=== PATIENT | female | born 1970 | race Caucasian/White ===

== ENCOUNTER 2023-05-27 09:24 | Emergency (ER) | payer MEDICAID, SELFPAY ==
[2023-05-27 09:31] VITALS: BP 142/80; PULSE 104; RESP 17; TEMP 36.3; O2SAT 99; BMI 24.9
[2023-05-27 09:46] VITALS: BP 128/91; RESP 17; O2SAT 100
--- NOTE | 2023-05-27 09:48 | W.ED.GENADLT ---
HPI - General Adult General: Chief complaint: Headache Stated complaint: elevated bp Time Seen by Provider: 05/27/23 09:34 Source: patient Mode of arrival: ambulatory Limitations: no limitations History of Present Illness: This patient was referred to the emergency department because she stopped at the stress center and apparently they took her blood pressure and it was in the 170/120 range at that time and they suggested she might want to come to the emergency department to be checked out. Patient is totally asymptomatic she denies any chest pain shortness of breath headache specifically or other constitutional complaints. She states that she had just walked over to the stress center this morning. She had had some coffee and also smoked cigarettes before she came into the stress center. She states there was a lot of drama going on and she felt a little anxious and stressed while she was there before they took her blood pressure. She takes 2 medications 1 of which is lisinopril the other is amphetamine. She states she is taking those regularly. She denies any other street drugs, alcohol, [id number] medications etc. She denies any thoughts of harming herself or others etc. Associated symptoms: Deny chest pain, dyspnea, headache(s), nausea, rash, palpitations, syncope or vomiting Review of Systems Const: Denies: fever(s) or chills Eyes: Denies: change in vision ENMT: Denies: odynophagia or nasal discharge Card: Denies: chest pain, palpitations, irregular heart rhythm, lightheadedness or syncope Resp: Denies: dyspnea, productive cough or non-productive cough GI: Denies: abdominal pain, nausea, vomiting or diarrhea : Denies: flank pain, difficulty voiding, dysuria or urinary frequency Musc: Denies: neck pain, back pain, extremity pain or extremity swelling Skin/Breast: Denies: rash Neuro: Denies: headache(s), numbness in extremities or weakness in extremities Psych: Reports: anxiety; Denies: visual hallucinations, auditory hallucinations, suicidal ideation or homicidal ideation Physical Exam Narrative: EXAM NARRATIVE: Patient is alert makes good eye contact speech is somewhat pressured but generally goal-directed and fluent. He is cooperative. Const: COMMON NORMALS: no acute distress, average body habitus, patient oriented x3, healthy appearing and alert GENERAL APPEARANCE: cooperative and comfortable HENMT: COMMON NORMALS: normocephalic, Normal nasal mucous membranes and turbinates present and moist oral mucous membranes HEAD & SCALP: normocephalic NOSE: Normal nasal mucous membranes and turbinates present Eye: COMMON NORMALS: Equal, round and reactive pupils present, EOMs intact bilaterally and conjunctivae normal CONJUNCTIVA: Yes conjunctivae normal PUPIL: Yes Equal, round and reactive pupils present Neck/C-Spine: COMMON NORMALS: full ROM, no lymphadenopathy and supple Chest: COMMONS NORMALS: normal inspection of the chest Resp: COMMON NORMALS: normal respiratory effort, No retractions, No use of accessory muscles and clear to auscultation bilaterally AUSCULTATION: clear to auscultation bilaterally Cardio: COMMON NORMALS: regular rate, regular rhythm, No murmurs present (Cardio) and Peripheral pulses 2+ throughout RATE: regular rate RHYTHM: regular rhythm PERIPHERAL PULSES: Peripheral pulses 2+ throughout GI: COMMON NORMALS: Normal to inspection, nondistended, normoactive bowel sounds present and Soft to palpation PALPATION: Yes Soft to palpation : COMMON NORMALS: Yes no CVA tenderness BLADDER/KIDNEY EXAM: Yes no CVA tenderness Back/Pelvis: COMMON NORMALS: no CVA tenderness, thoracic and lumbar spine normal to inspection, no thoracic nor lumbar tenderness, thoraco-lumbar ROM normal and straight leg raise negative bilaterally Extremity: COMMON NORMALS: normal to inspection, full ROM, capillary refill normal, no calf tenderness and no pedal edema Neuro: COMMON NORMALS: patient oriented x3, moves all extremities, no focal motor deficits and no sensory deficits noted SENSORIUM/ORIENTATION: Yes alert CRANIAL NERVES: Yes CN normal except as noted Psych: COMMON NORMALS: mental status grossly normal, Normal thought process present, cooperative, normal affect, speech normal, denies hallucinations, denies homicidal ideation and denies suicidal ideation ACTIVITY/MOTOR BEHAVIOR: Yes appropriate eye contact SPEECH: Yes normal speech MOOD & AFFECT: Yes elevated mood THOUGHT PROCESS: Normal thought process present THOUGHT CONTENT: Yes Normal thought content present ATTENTION/CONCENTRATION: Yes attention grossly intact and Yes concentration grossly intact MEMORY/COGNITION: Yes memory grossly intact INSIGHT: Fair insight present (Psych) JUDGEMENT: Fair judgement present (Psych) Skin: COMMON NORMALS: no rashes or lesions noted and no wounds GENERAL SKIN EXAM: no rashes or lesions noted Course ED course: Patient's blood pressure is certainly in normal range on repeated evaluations in the emergency department. She is totally asymptomatic and has no other current findings on her clinical examination. Vital Signs: Vital signs: Vital Signs Temperature 97.4 F L 05/27/23 09:31 Pulse Rate 104 H 05/27/23 09:31 Respiratory Rate 17 05/27/23 09:46 Blood Pressure 128/91 05/27/23 09:46 Pulse Oximetry 100 05/27/23 09:46 Oxygen Delivery Me thod Room Air 05/27/23 09:46 MDM - General Adult Medical Decision Making Patient with historically elevated blood pressure noted this morning at the crisis center and was sent to this emergency department for further evaluation. She has a history of hypertension and takes lisinopril and apparently also takes amphetamine as part of her prescribed medications. She arrived at the emergency department totally asymptomatic with a reassuring clinical examination blood pressures while in the emergency department revealed initial blood pressure of 128/91 and a subsequent blood pressure was 142/80. Again she remained totally asymptomatic with a reassuring clinical examination. No further intervention warranted at this time no evidence of an ongoing emergency medical condition but we discussed return precautions and she was comfortable with the plan. No radiology studies performed this visit Discharge Plan Discharge Patient Disposition: Home Clinical Impression: Elevated blood pressure reading Condition: Stable Prescriptions: No Action No Known Home Medications Discharge Orders: Discharge ED (Routine); Ordered 05/27/23 Ordered By: Basim Melendrez Discharge Diet: Usual diet Discharge Activity: Resume usual activity Patient Instructions: Opioid Safety, Pain Management Activity Restrictions/Additional Instructions: Continue all your usual prescribed medications. Try to reduce your tobacco and caffeine use. If you develop any symptoms such as headache, shortness of breath or other concerning symptoms or your blood pressures remain elevated with the symptoms return for further evaluation otherwise follow-up with your primary care doctor regarding medications adjustments Coding Level of Care Code ED Brush Clearing Laborer for Pavel Cormier
== END 2023-05-27 10:17 | disposition home or self-care (01) ==
PROVIDERS: Emergency Provider Emergency Medicine
DX: R03.0 Elevated blood-pressure reading, without diagnosis of hypertension (principal); I10 Essential (primary) hypertension; Z72.0 Tobacco use
CPT/HCPCS: 99281

== ENCOUNTER 2023-06-21 23:04 | Emergency (ER) | payer MEDICAID, SELFPAY ==
[2023-06-21 23:08] VITALS: BP 133/91; PULSE 98; RESP 14; TEMP 36.3; O2SAT 98
[2023-06-22 00:31] LABS: Amphetamines Screen Urine Positive (Negative); Barbiturates Screen Urine Negative (Negative); Benzodiazepines Screen Urine Negative (Negative); Cocaine Screen Urine Negative (Negative); Opiate Screen Urine Negative (Negative); PCP Screen Urine Negative (Negative); THC Screen Urine Negative (Negative)
--- NOTE | 2023-06-22 00:55 | W.ED.GENADLT ---
HPI - General Adult General: Chief complaint: General Medical Stated complaint: Left Knee Pain\Wants a Drug test Time Seen by Provider: 06/21/23 23:32 Source: patient Mode of arrival: ambulatory Limitations: no limitations History of Present Illness: 53yo female presents with request of a urine drug screen. Patient states she is currently homeless and was staying at a facility, but was asked to leave when she tested positive for marijuana and amphetamines in her urine. Patient states that she does have a prescription for amphetamine salts, but does not use marijuana. She is requesting a drug test to ensure that there he has no marijuana in her system. She denies any other complaints at this time. Associated symptoms: Deny chest pain, dyspnea or vomiting Review of Systems Const: Denies: fever(s) or chills ENMT: Denies: throat pain Card: Denies: chest pain Resp: Denies: dyspnea GI: Denies: vomiting or diarrhea Physical Exam Const: COMMON NORMALS: no acute distress and alert GENERAL APPEARANCE: cooperative ORIENTATION/CONSCIOUSNESS: Yes awake OTHER: Patient is ambulatory to the exam room unassisted. She is sitting upright on the side of the stretcher no acute distress. She is able to give history with no difficulty. No family is at bedside HENMT: COMMON NORMALS: normocephalic and Normal external nose present HEAD & SCALP: normocephalic NOSE: Normal external nose present Neck/C-Spine: COMMON NORMALS: full ROM Chest: CHEST: Yes Symmetrical chest wall rise Resp: COMMON NORMALS: normal respiratory effort Extremity: NARRATIVE EXTREMITY EXAM: MAEW Neuro: SENSORIUM/ORIENTATION: Yes alert Psych: COMMON NORMALS: cooperative ATTITUDE: Yes calm Course Vital Signs: Vital signs: Vital Signs Temperature 97.4 F L 06/21/23 23:08 Pulse Rate 98 06/21/23 23:08 Respiratory Rate 14 06/21/23 23:08 Blood Pressure 133/91 06/21/23 23:08 Pulse Oximetry 98 06/21/23 23:08 Oxygen Delivery Me thod Room Air 06/21/23 23:08 MDM - General Adult Medical Decision Making 53yo female here with request of a urine drug screen. Patient is currently homeless and was staying at a facility, but tested positive for cannabinoids and amphetamines on their drug screen. Patient does report that she has a prescription for amphetamine salts and does have the prescription bottle with her, but states that she does not use marijuana. She is requesting a drug screen to ensure that she does not have cannabinoids in her system. She denies any other concerns at this time. Patient is nontoxic in appearance. Vital signs are stable. UDS with presumptive positive for amphetamines. Discussed these findings with patient. Patient was provided with a copy of her labs at her request. Recommend she follow-up with her doctor for recheck. Advised return to the emergency department as needed. Patient states understanding and has no further questions at this time. Lab Data I reviewed the patient's lab results. Laboratory Results Urine Opiates Screen Negative ng/mL (Negative) 06/22/23 00:13 Ur Barbiturates Screen Negative ng/mL (Negative) 06/22/23 00:13 Ur Phencyclidine Scrn Negative ng/mL (Negative) 06/22/23 00:13 Ur Amphetamines Screen Positive ng/mL (Negative) H 06/22/23 00:13 U Benzodiazepines Scrn Negative ng/mL (Negative) 06/22/23 00:13 Urine Cocaine Screen Negative ng/mL (Negative) 06/22/23 00:13 U Marijuana (THC) Screen Negative ng/mL (Negative) 06/22/23 00:13 No radiology studies performed this visit Discharge Plan Discharge Patient Disposition: Home Clinical Impression: Encounter for drug screening Condition: Stable Prescriptions: No Action No Known Home Medications Discharge Orders: Discharge ED (Routine); Ordered 06/22/23 Ordered By: Pj Bailey Discharge Diet: Usual diet Discharge Activity: Resume usual activity Activity Restrictions/Additional Instructions: You are provided with a copy of your urine drug screen results Please follow-up with your doctor as needed for recheck Return to the emergency department as needed Coding Level of Care Code ED Visual Training Aide for Pavel Cormier
== END 2023-06-22 00:51 | disposition home or self-care (01) ==
PROVIDERS: Emergency Provider Nurse Practitioner
DX: Z00.00 Encounter for general adult medical examination without abnormal findings (principal); Z59.01 Sheltered homelessness
CPT/HCPCS: 80306; 99283

== ENCOUNTER 2023-06-22 22:15 | Emergency (ER) | payer MEDICAID, SELFPAY ==
[2023-06-22 22:36] VITALS: BP 133/84; PULSE 88; RESP 14; TEMP 36.6; O2SAT 98
[2023-06-23 01:41] VITALS: BP 115/65; PULSE 69; RESP 14; O2SAT 98
--- NOTE | 2023-06-23 02:21 | W.ED.EXTPRO ---
HPI - Extremity Problem General: Chief complaint: Extremity Problem,Nontraumatic Stated complaint: hands are red/burning, believes bp is high Time Seen by Provider: 06/23/23 00:37 History of Present Illness: 53-year-old female presents to the emergency department stating that she feels like her blood pressure is high. She was seen yesterday requesting a urine drug screen as she is homeless and the retirement where she was staying at told her that she was not able to stay there because she tested positive for amphetamines and marijuana. She states she has not smoked marijuana. Since her time of discharge yesterday patient has been sleeping in the waiting room. She now presents with concerns that her blood pressure might be high and that her hands are dry and red. She denies numbness or tingling, fevers chills or night sweats. Review of Systems General: Reports: 10 or more systems reviewed and unremarkable except in HPI and below Skin/Breast: Reports: erythema Physical Exam Const: COMMON NORMALS: no acute distress, patient oriented x3 and alert HENMT: COMMON NORMALS: normocephalic, atraumatic and EAC's normal HEAD & SCALP: normocephalic and atraumatic EXTERNAL AUDITORY CANAL: EAC's normal Eye: COMMON NORMALS: Equal, round and reactive pupils present and EOMs intact bilaterally PUPIL: Yes Equal, round and reactive pupils present Neck/C-Spine: COMMON NORMALS: full ROM, supple, no meningeal signs and no JVD Resp: COMMON NORMALS: normal respiratory effort, No use of accessory muscles and clear to auscultation bilaterally AUSCULTATION: clear to auscultation bilaterally Cardio: COMMON NORMALS: no JVD, regular rate, regular rhythm, S1 normal heart sound present and S2 normal heart sound present RATE: regular rate RHYTHM: regular rhythm HEART SOUNDS: S1 normal heart sound present and S2 normal heart sound present Extremity: COMMON NORMALS: normal to inspection, full ROM and capillary refill normal Neuro: COMMON NORMALS: patient oriented x3 SENSORIUM/ORIENTATION: Yes alert MENINGEAL SIGNS: Yes no meningeal signs Psych: COMMON NORMALS: mental status grossly normal, Normal thought process present, cooperative and speech normal SPEECH: Yes normal speech THOUGHT PROCESS: Normal thought process present Skin: GENERAL SKIN EXAM: dry skin Course Vital Signs: Vital signs: Vital Signs Temperature 97.8 F 06/22/23 22:36 Pulse Rate 69 06/23/23 01:41 Respiratory Rate 14 06/23/23 01:41 Blood Pressure 115/65 06/23/23 01:41 Pulse Oximetry 98 06/23/23 01:41 Oxygen Delivery Me thod Room Air 06/23/23 01:41 MDM - Extremity (Nontraumatic) Medical Decision Making Physical exam completed and documented, have an extensive discussion with the patient regarding supportive care for her dry hands as well as reassured her that her blood pressure was not elevated. I will discharge and recommend follow-up as needed. Medical Records I reviewed the patient's medical records. No radiology studies performed this visit Discharge Plan Discharge Patient Disposition: Home Clinical Impression: Medical condition not demonstrated, Homelessness Condition: Stable Prescriptions: No Action No Known Home Medications Discharge Orders: Discharge ED (Routine); Ordered 06/23/23 Ordered By: Nickolas Beebe Discharge Diet: Usual diet Discharge Activity: Resume usual activity Patient Instructions: Opioid Safety, Pain Management Coding Level of Care Code ED Tourist Information Officer for Pavel Cormier
[2023-06-23 02:31] VITALS: BP 108/63; O2SAT 99
== END 2023-06-23 02:32 | disposition home or self-care (01) ==
PROVIDERS: Emergency Provider Internal Medicine
DX: Z03.89 Encounter for observation for other suspected diseases and conditions ruled out (principal); Z59.00 Homelessness unspecified
CPT/HCPCS: 99281

== ENCOUNTER 2023-07-17 09:10 | Inpatient (IN) | payer MEDICAID, SELFPAY ==
[2023-07-17 09:10] VITALS: BP 135/83; PULSE 95; RESP 16; TEMP 37.1; O2SAT 98; BMI 24.5
[2023-07-17 10:40] LABS: Basophils % 0.5 %; Eosinophils # 0.1 10^3/uL (0.0-0.8); Eosinophils % 1.3 %; Hematocrit 44.4 % (36-47); Lymphocytes % 23.3 %; Mean Corpuscular HGB Conc 33.8 g/dL (30-55); Mean Corpuscular Hemoglobin 30.1 pg (27-33); Mean Platelet Volume 10.8 fL (7.4-10.4); Monocytes # 0.6 10^3/uL (0.2-0.9); Monocytes % 7.4 %; Neutrophils # 5.72 10^3/uL (1.8-7.7); Neutrophils % 67.4 %; Nucleated Red Blood Cells % 0 %; Platelet Count 248 10^3/cmm (157-399); Red Blood Count 4.99 10^6/uL (3.85-5.65); Red Cell Distribution Width 13.9 % (12.1-15.1); White Blood Count 8.49 10^3/uL (3.29-11.43)
[2023-07-17 10:43] LABS: HCG Qualitative Urine. Negative (Negative)
--- NOTE | 2023-07-17 10:50 | ED.C_ITS ---
HPI - Psych 2 General: Chief Complaint: Psychiatric Symptoms Stated Complaint: PSYCH EVAL Time Seen by Provider: 07/17/23 10:08 History of Present Illness: 53-year-old female presents to the emerg ency department stating that she has been staying at a homeless skilled nursing and states that she has had significant anxiety and worsening stress over the previous several months and today it became too much for her. She states that yesterday she started having thoughts that she could not get out of her head. She states that she has difficulty having a conversation and feels like her mind is racing. She states that she feels hopeless and just wants to give up on life although she states she does not have any type of suicidal ideation or homicidal ideation. She states she feels very depressed and states that she just does not want to eat or drink anything for the previous 3 to 4 days. She states she was previously seen at [facility] for inpatient psychiatry in 2017. She states at that time she was seen because she was taking her son's Adderall medication. 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 She does endorse intermittent usage of cigarette tobacco products as well as intermittent alcohol use and states that she has not consumed any alcohol within the past 1 month. She states she does feel like people are following her and are after her but she does not provide a reason as to why that would be. She denies auditory or visual hallucinations. Associated symptoms: Reports depression; Deny auditory hallucinations, visual hallucinations, homicidal ideation or suicidal ideation Review of Systems 2 General: Reports: 10 or more systems reviewed and unremarkable except in HPI and below Psych: Reports: anxiety, depression, hopelessness and difficulty concentrating; Denies: visual hallucinations, auditory hallucinations, tactile hallucinations, suicidal ideation or homicidal ideation Physical Exam 2 Const: COMMON NORMALS: no acute distress, patient oriented x3 and alert HENMT: COMMON NORMALS: normocephalic, atraumatic, TM's normal bilaterally, Normal external nose present, Normal nasal mucous membranes and turbinates present and moist oral mucous membranes HEAD & SCALP: normocephalic and atraumatic NOSE: Normal external nose present and Normal nasal mucous membranes and turbinates present TYMPANIC MEMBRANE: TM's normal bilaterally Eye: COMMON NORMALS: Equal, round and reactive pupils present and EOMs intact bilaterally PUPIL: Yes Equal, round and reactive pupils present Neck/C-Spine: COMMON NORMALS: full ROM, supple, no meningeal signs and Thyroid normal THYROID: Thyroid normal Resp: COMMON NORMALS: normal respiratory effort, No use of accessory muscles and clear to auscultation bilaterally AUSCULTATION: clear to auscultation bilaterally Cardio: COMMON NORMALS: regular rate, regular rhythm, S1 normal heart sound present, S2 normal heart sound present and Peripheral pulses 2+ throughout R ATE: regular rate RHYTHM: regular rhythm HEART SOUNDS: S1 normal heart sound present and S2 normal heart sound present PERIPHERAL PULSES: Peripheral pulses 2+ throughout GI: COMMON NORMALS: Normal to inspection, nondistended, normoactive bowel sounds present, Soft to palpation and non-tender PALPATION: Yes Soft to palpation : COMMON NORMALS: Yes no CVA tenderness BLADDER/KIDNEY EXAM: Yes no CVA tenderness Back/Pelvis: COMMON NORMALS: no CVA tenderness and thoracic and lumbar spine normal to inspection Extremity: COMMON NORMALS: normal to inspection, full ROM and capillary refill normal Neuro: COMMON NORMALS: patient oriented x3, moves all extremities and no sensory deficits noted SENSORIUM/ORIENTATION: Yes alert MENINGEAL SIGNS: Y es no meningeal signs Psych: APPEARANCE: Yes grossly normal ATTITUDE: Yes calm, No paranoid and No uncooperative ACTIVITY/MOTOR BEHAVIOR: Yes appropriate eye contact, No psychomotor agitation, No psychomotor slowing, No fidgeting, No hyperactivity and Yes disorganized behavior SPEECH: Yes rapid and Yes Pressured speech present MOOD & AFFECT: Yes euthymic mood THOUGHT PROCESS: disorganized and Tangential thought process present THOUGHT CONTENT: No Suicidality present and No Homicidality present ATTENTION/CONCENTRATION: Yes attention grossly intact and Yes concentration grossly intact MEMORY/COGNITION: Yes memory grossly intact and Yes cognition grossly intact INSIGHT: Good insight present (Psych) JUDGEMENT: Good judgement present (Psych) Course 2 Reevaluation(s): Reevaluation #1: Patient remains calm and cooperative in the ER exam room #9 I did advise her that I spoke with Dr. Taylor our psychiatrist and discussed the patient's laboratory evaluation and will admit her inpatient for psychiatric evaluation treatment and care. I will provide patient antibiotics for her urinary tract infection at the time of admission. Time: 11:37 Vital Signs: Vital signs: Vital Signs Temperature 98.7 F 07/17/23 09:10 Pulse Rate 95 07/17/23 09:10 Respiratory Rate 16 07/17/23 09:10 Blood Pressure 135/83 07/17/23 09:10 Pulse Oximetry 98 07/17/23 09:10 Oxygen Delivery Me thod Room Air 07/17/23 09:10 [facility] - Psych Medical Decision Making Physical exam completed and documented, I will obtain medical clearance psychiatric labs to include CBC, CMP, urinalysis urine drug screen and serum alcohol level. I will contact the psychiatrist to request admission to the inpatient psychiatric unit to evaluate the patient for additional treatment. Medical Records I reviewed the patient's medical records. Lab Data 07/17/23 09:31 07/17/23 09:31 Laboratory Results WBC 8.49 10^3/uL (3.29-11.43) 07/17/23 09:31 RBC 4.99 10^6/uL (3.85-5.65) 07/17/23 09:31 Hgb 15.00 g/dL (11.27-16.99) 07/17/23 09:31 Hct 44.4 % (36-47) 07/17/23 09:31 MCV 89.0 fl (85-98) 07/17/23 09:31 MCH 30.1 pg (27-33) 07/17/23 09:31 MCHC 33.8 g/dL (30-55) 07/17/23 09:31 RDW 13.9 % (12.1-15.1) 07/17/23 09:31 Plt Count 248 10^3/cmm (157-399) 07/17/23 09:31 MPV 10.8 fL (7.4-10.4) H 07/17/23 09:31 Neut % (Auto) 67.4 % 07/17/23 09:31 Lymph % (Auto) 23.3 % 07/17/23 09:31 [place] % (Auto) 7.4 % 07/17/23 09:31 Eos % (Auto) 1.3 % 07/17/23 09:31 Baso % (Auto) 0.5 % 07/17/23 09:31 Neut # (Auto) 5.72 10^3/uL (1.8-7.7) 07/17/23 09:31 Lymph # (Auto) 2.0 10^3/uL (0.8-4.8) 07/17/23 09:31 [place] # (Auto) 0.6 10^3/uL (0.2-0.9) 07/17/23 09:31 Eos # (Auto) 0.1 10^3/uL (0.0-0.8) 07/17/23 09:31 Baso # (Auto) 0.0 10^3/uL (0.0-0.1) 07/17/23 09:31 Nucleated RBC % (auto) 0 % 07/17/23 09:31 Nucleated RBCs # 0.0 /100WBC 07/17/23 09:31 Sodium 133 mmol/L (136-145) L 07/17/23 09:31 Potassium 4.0 mmol/L (3.5-5.1) 07/17/23 09: Chloride 100 mmol/L (98-107) 07/17/23 09: Carbon Dioxide 23 mmol/L (22-29) 07/17/23 09: Anion Gap 14.0 (5-19) 07/17/23 09: BUN 13 mg/dL (6-20) 07/17/23 09:31 Creatinine 0.5 mg/dL (0.5-0.9) 07/17/23 09:31 GFR Calculation 129.6 mL/min (90-130) 07/17/23 09: Glucose 100 mg/dL (65-115) 07/17/23 09: Calculated Osmolality 276 mOsm/kg (285-295) L 07/17/23: Calcium 9.4 mg/dL (8.5-10.5) 07/17/23 09:31 Total Bilirubin 0.2 mg/dL (0.15-1.2) 07/17/23 09: AST 19 U/L (0-32) 07/17/23 09:31 ALT 16 U/L (0-33) 07/17/23 09:31 Alkaline Phosphatase 81 U/L (35-105) 07/17/23 09:31 Total Protein 7.3 g/dL (6.6-8.7) 07/17/23 09:31 Albumin 4.0 g/dL (3.5-5.2) 07/17/23 09:31 Globulin 3.3 g/dL (1.3-4.6) 07/17/23 09: TSH 1.86 uIU/mL (0.27-4.20) 07/17/23 09: HCG, Qual Negative (Negative) 07/17/23 09: Urine Color Yellow (Yellow) 07/17/23 09: Urine Appearance Sl hazy (CLEAR) A 07/17/23 09: Urine pH 5 (5-7) 07/17/23: Ur Specific [place] 1.025 (1.005-1.030) 07/17/23: Urine Protein 1+ (Negative) H 07/17/23 09: Urine Glucose (UA) Norm (Normal) 07/17/23: Urine Ketones Negative (Negative) 07/17/23: Urine Blood 2+ (Negative) H 07/17/23: Urine Nitrate Negative (Negative) 07/17/23 09: Urine Bilirubin Neg (Negative) 07/17/23: Urine Urobilinogen Norm mg/dL (Negative) 07/17/23: Ur Leukocyte Esterase 2+ (Negative) H 07/17/23: Urine RBC 5-10 /hpf (0-2) H 07/17/23: Urine WBC 15-25 /hpf (0-5) H 07/17/23: Ur Squamous Epith Cells 0-4 /hpf (0-5) H 07/17/23 09: Amorphous Sediment Not Reportable 07/17/23: Urine Bacteria 1+ /hpf (NONE) H 07/17/23: Urine Mucus 1+ /hpf 07/17/23: Salicylates < 0.3 mg/dL (3-10) L 07/17/23: Urine Opiates Screen Negative ng/mL (Negative) 07/17/23: Acetaminophen < 5.0 ug/mL (10-30) L 07/17/23: Ur Barbiturates Screen Negative ng/mL (Negative) 07/17/23: Ur Phencyclidine Scrn Negative ng/mL (Negative) 07/17/23: Ur Amphetamines Screen Negative ng/mL (Negative) 07/17/23: U Benzodiazepines Scrn Negative ng/mL (Negative) 07/17/23 09:31 Urine Cocaine Screen Negative ng/mL (Negative) 07/17/23 09:31 U Marijuana (THC) Screen Negative ng/mL (Negative) 07/17/23 09:31 Ethyl Alcohol < 10 mg/dL (0-10) 07/17/23 09:31 No radiology studies performed this visit Discharge Plan Discharge Patient Disposition: Admitted As Inpatient Clinical Impression: Depression Qualifiers: Depression Type: major depressive disorder Major depression recurrence: r ecurrent Active/Remission status: currently active Major depression episode severity: severe Psychotic features: without psychotic features Qualified Code(s): F33.2 - Major depressive disorder, recurrent severe without psychotic features UTI (urinary tract infection) Qualifiers: Urinary tract infection type: acute cystitis Hematuria presence: with hematuria Qualified Code(s): N30.01 - Acute cystitis with hematuria Condition: Stable Coding Level of Care Code ED Rag Washer for Pavel Cormier
[2023-07-17 10:56] LABS: Amphetamines Screen Urine Negative (Negative); Barbiturates Screen Urine Negative (Negative); Benzodiazepines Screen Urine Negative (Negative); Cocaine Screen Urine Negative (Negative); Opiate Screen Urine Negative (Negative); PCP Screen Urine Negative (Negative); THC Screen Urine Negative (Negative)
[2023-07-17 11:00] LABS: Alanine Aminotransferase 16 U/L (0-33); Alkaline Phosphatase 81 U/L (35-105); Aspartate Amino Transferase 19 U/L (0-32); Blood Urea Nitrogen 13 mg/dL (6-20); Calcium 9.4 mg/dL (8.5-10.5); Carbon Dioxide 23 mmol/L (22-29); Chloride 100 mmol/L (98-107); Creatinine Clr Calc Pharmacy 122.1019; Globulin 3.3 g/dL (1.3-4.6); Glomerular Filtration Rate 129.6 mL/min (90-130); Glucose 100 mg/dL (65-115); Osmolality Calculated 276 mOsm/kg (285-295); Sodium 133 mmol/L (136-145); Thyroid Stimulating Hormone 1.86 uIU/mL (0.27-4.20); Total Bilirubin 0.2 mg/dL (0.15-1.2); Total Protein 7.3 g/dL (6.6-8.7)
[2023-07-17 11:03] LABS: Acetaminophen < 5.0 ug/mL (10-30); Alcohol Level < 10 mg/dL (0-10); Salicylate < 0.3 mg/dL (3-10)
[2023-07-17 11:29] LABS: Protein Urine 1+ (Negative); Specific Gravity, Urine 1.025 (1.005-1.030); Urine Appearance SL Hazy (CLEAR); Urine Color Yellow (Yellow); pH Urine 5 (5-7)
[2023-07-17 11:30] LABS: Add Urine Culture? Yes; Add Urine Microscopic? YES; Bacteria Urine 1+ /hpf; Bilirubin Urine Neg (Negative); Blood Urine 2+ (Negative); Glucose Urine UA Norm (Normal); Ketones Urine Negative (Negative); Leukocyte Esterase Urine 2+ (Negative); Mucus Urine 1+ /hpf; Nitrate Urine Negative (Negative); Squamous Epithelial Cell Urine 0-4 /hpf (0-5); Urobilinogen Urine Norm (Negative); WBC Urine 15-25 /hpf (0-5)
[2023-07-17] MEDS: nitrofurantoin SR (BID) 100 mg Capsule PO (11:54)
[2023-07-17 12:05] VITALS: BP 118/72; PULSE 88; RESP 14; TEMP 36.5; O2SAT 98
[2023-07-17 14:00] VITALS: BP 118/72; PULSE 88; RESP 14; TEMP 36.5; O2SAT 98
[2023-07-17] MEDS: nicotine 4 mg lozenge MUCOUS MEM (16:31)
[2023-07-17] MEDS: hyDROXYzine 25 mg Capsule 50 MG PO (16:34)
--- NOTE | 2023-07-17 16:35 | PC.NURSE ---
Patient laying in bed, crying. Patient states that she is worried about what happens next after she leaves the unit. Patient states that it's not safe for me out there. This nurse reassured patient that the transplant case manager would work with her on Wednesday trying to get her a place to go. Administered 50mg vistaril to patient.
[2023-07-17] MEDS: lisinopril 5 mg Tablet 2.5 MG PO (18:18)
--- NOTE | 2023-07-17 18:37 | PC.NURSE ---
Patient's sister called, worried about patient. Patient's sister states that the patient has takes to three people that aren't there, including somebody she calls Karla. She will yell stuff like shut up eduardo . Patient's sister now states that she is seeing a pedophile who is talking about her grandkids. 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 Patient is also taking too many of her adderall at a time, per patient.
--- NOTE | 2023-07-17 18:42 | PC.NURSE ---
Patient's sister is Aida Mcknight, phone number is [phone]
[2023-07-17] MEDS: OLANZapine 5 mg ODT PO (20:14)
[2023-07-17] MEDS: nicotine 2 mg Gum BUCCAL (20:14)
[2023-07-17] MEDS: trazodone 50 mg Tablet PO (20:15)
[2023-07-17 20:51] VITALS: BP 96/60; PULSE 83; RESP 17; TEMP 36.4; O2SAT 97
--- NOTE | 2023-07-17 21:14 | PC.NURSE ---
IN ROOM RESTING. PT IS EVASIVE WITH ASSESSMENT AND DOES NOT SHARE ANY INFORMATION TO WHY SHE IS HERE TODAY. DENIES PAIN. DENIES SI/HI AND VH AT THIS TIME. PT DOES ENDORSE HEARING VOICES THAT ARE NEGATIVE IN NATURE. PT IS NOTED TO HAVE A FLAT AFFECT AND DEPRESSED MOOD, WITHDRAWS AND ISOLATES TO ROOM AND GUARDED WITH STAFF. RATES ANXIETY 2/10 AND DEPRESSION 5/10. PT REQUESTS PRN MEDICATIONS FOR INSOMNIA AND INCREASED ANXIETY. PT WAS GIVEN TRAZODONE 50 MG ORDERED FOR SLEEP. PT ALSO RECEIVED ZYDIS 5 MG FOR ANXIETY. ALL QUESTIONS ANSWERED AND SUPPORT WAS VOICED.
--- NOTE | 2023-07-18 05:54 | PC.NURSE ---
PT REQUIRED PRN MEDICATIONS THIS SHIFT FOR REPORTS OF INCREASED ANXIETY AND INSOMNIA. MEDICATIONS DEEMED EFFECTIVE AT THIS TIME. PT HAS HAD NO OTHER COMPLAINTS OF ANXIETY AND HAS SLEPT APPROXIMATELY 9-10 HOURS THIS SHIFT. PT CONTINUES TO REST WITH EYES CLOSED AND NO DISTRESS NOTED AT THIS TIME.
[2023-07-18 06:00] VITALS: BP 97/62; PULSE 75; RESP 16; TEMP 36.9; O2SAT 94
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
[2023-07-18 09:45] LABS: Basophils % 0.5 %; Eosinophils # 0.2 10^3/uL (0.0-0.8); Hematocrit 42.5 % (36-47); Lymphocytes # 2.1 10^3/uL (0.8-4.8); Lymphocytes % 36.5 %; Mean Corpuscular HGB Conc 32.2 g/dL (30-55); Mean Corpuscular Hemoglobin 29.5 pg (27-33); Mean Corpuscular Volume 91.6 fl (85-98); Mean Platelet Volume 10.2 fL (7.4-10.4); Monocytes # 0.5 10^3/uL (0.2-0.9); Neutrophils # 2.92 10^3/uL (1.8-7.7); Neutrophils % 50.8 %; Nucleated Red Blood Cells % 0 %; Platelet Count 205 10^3/cmm (157-399); Red Blood Count 4.64 10^6/uL (3.85-5.65); Red Cell Distribution Width 14.2 % (12.1-15.1); White Blood Count 5.75 10^3/uL (3.29-11.43)
[2023-07-18] MEDS: nicotine 21 mg Patch 1 PATCH TRANSDERMA (09:45)
[2023-07-18] MEDS: lisinopril 5 mg Tablet 2.5 MG PO (09:45)
[2023-07-18 10:13] LABS: Anion Gap 12.1 (5-19); Blood Urea Nitrogen 12 mg/dL (6-20); Calcium 8.9 mg/dL (8.5-10.5); Carbon Dioxide 28 mmol/L (22-29); Chloride 105 mmol/L (98-107); Creatinine Clr Calc Pharmacy 87.7808; Glomerular Filtration Rate 87.9 mL/min (90-130); Glucose 73 mg/dL (65-115); Osmolality Calculated 290 mOsm/kg (285-295); Potassium 4.1 mmol/L (3.5-5.1); Sodium 141 mmol/L (136-145)
[2023-07-18 14:00] VITALS: BP 96/70; PULSE 92; RESP 17; TEMP 36.8; O2SAT 97
[2023-07-18] MEDS: trazodone 50 mg Tablet PO (19:57)
[2023-07-18] MEDS: hyDROXYzine 25 mg Capsule 50 MG PO (19:57)
[2023-07-18 20:03] VITALS: BP 134/70; PULSE 83; RESP 16; TEMP 36.7; O2SAT 97
[2023-07-18] MEDS: nicotine 2 mg Gum BUCCAL (21:53)
[2023-07-19 06:00] VITALS: BP 113/70; PULSE 56; RESP 16; TEMP 37.1; O2SAT 98
--- NOTE | 2023-07-19 08:18 | PC.NURSE ---
UP IN DAY ROOM PT STATES SHE IS LOOKING FOR RESOURCES FOR AFTER DISCHARGE DUE TO BEING HOMELESS. PT DENIES PAIN. DENIES SI/HI AND VH AT THIS TIME. PT STATES SHE DOES HEAR VOICES BUT THEY ARE FAR AWAY IN THE DISTANCE AND NO INSIDE OF ME. RATES ANXIETY AND DEPRESSION 05/19. ALL QUESTIONS ANSWERED AND SUPPORT WAS VOICED.
[2023-07-19] MEDS: lisinopril 5 mg Tablet 2.5 MG PO (08:41)
[2023-07-19] MEDS: nicotine 21 mg Patch 1 PATCH TRANSDERMA (12:57)
[2023-07-19] MEDS: OLANZapine 5 mg ODT PO ×2 (12:58→21:08)
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
[2023-07-19 14:00] VITALS: BP 109/65; PULSE 77; RESP 16; TEMP 36.6; O2SAT 99
--- NOTE | 2023-07-19 18:50 | P.NPUPN_ITS ---
Subjective NPU 2 Subjective: Patient presented today reporting that she is going fine overall but that she needs to restart her Adderall. She then spoke almost exclusively about restarting that and that being the answer to all of her problems. Conversations about her problems with taking Adderall in the past and concerns about her overusing and getting off the Internet did not seem to phase her in her conversation about that being restarted. She even at 1 point talked about it making her feel good like sometimes people report when they smoke weed. Attempted to discuss a concern that is not necessarily a good thing but she did not do to follow. Mental Status Exam 2 MSE Comments: This is a well-nourished well-developed white female looking older than her stated age with hospital scrubs on with poor grooming and eye contact. No abnormal movements except for psychomotor retardation. Cooperative with exam and mild to moderate distress. Speech was decreased rate and volume. Mood described as stressed out, affect anxious and congruent. Thought process mostly organized. Thought content: Patient reports feeling overwhelmed and stressed but denies feeling anxious. Patient denies having thoughts of self-harm or harm to others. Patient denies experiencing visual hallucinations but reports occasionally hearing distant conversations. She denies suicidal or homicidal ideation, there were no delusions reported but some guardedness and paranoia suspected, she denied auditory visual hallucinations but reports preceding hospitalization endorsed their presence. Attention and concentration were limited and memory appeared unreliable but none were formally tested. She is alert and oriented to person and place. Insight, judgment and impulse control are impaired. Vitals/I&O/Wt Last Vital Signs Temp 97.8 F 07/19/23 14:00 Pulse 77 07/19/23 14:00 Resp 16 07/19/23 14:00 BP 109/65 07/19/23 14:00 Pulse Ox 99 07/19/23 14:00 O2 Del Method Room Air 07/19/23 06:00 Weight last 48 hrs Weight 65.816 kg Data NPU 07/18/23 09:37 07/18/23 09:37 Micro: Microbiology 07/17/23 09:31 Urine Culture - Final Urine,Clean Catch Microbiology 07/17/23 09:31 Urine,Clean Catch Urine Culture - Final A&P Assessment and plan (1) Psychosis: (2) History of ADHD: (3) Amphetamine use disorder, severe: (4) Anxiety: Plan This is a 53-year-old white female with significant psychosocial stressors of financial difficulties and homelessness with likely amphetamine use disorder severe but with limited insight or unwillingness to face the reality of said addiction with likely sequela of psychosis surrounding her use past and present. 1. Continue current medication. We will work with outpatient team to identify that where her Adderall use fits into successful treatment. For now we will hold ADHD medication but continue antihypertensive. Concerns surrounding use of stimulants significant. 2. Continue every 15 minute checks for safety. 3. Encourage individual, group and milieu therapy. 4. Encourage sober living treatment after discharge at the highest level of care to which he is willing to commit. Involuntary Hold Information 2 96 Hour Hold: 96 Hour Involuntary Admission: No Attestations NPU 2 Medical Necessity Statement*: Inpatient hospitalization is medically necessary and the clinically appropriate intervention at this time. We will monitor medications and make changes as indicated. Likely length of stay 3-5 days. Coding Level of Care Code Acute Code for [facility] Fwd Diagnoses Psychosis F29 History of ADHD Z86.59 Amphetamine use disorder, 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
[2023-07-19] MEDS: hyDROXYzine 25 mg Capsule 50 MG PO (20:21)
[2023-07-19] MEDS: trazodone 50 mg Tablet PO (20:21)
[2023-07-19 20:42] VITALS: BP 111/78; PULSE 88; RESP 18; TEMP 36.8; O2SAT 98
[2023-07-20 06:00] VITALS: BP 115/61; PULSE 68; RESP 18; TEMP 36.7; O2SAT 94
[2023-07-20] MEDS: nicotine 21 mg Patch 1 PATCH TRANSDERMA (09:16)
[2023-07-20] MEDS: lisinopril 5 mg Tablet 2.5 MG PO (09:16)
[2023-07-20] MEDS: acetaminophen 325 mg Tablet 650 MG PO ×2 (10:00→16:21)
[2023-07-20 14:00] VITALS: RESP 18
--- NOTE | 2023-07-20 14:43 | P.NPUPN_ITS ---
Subjective NPU 2 Subjective: Patient presents today reporting that things are fine. She reports needing to get on Adderall and we continue to discuss our belief that it is a significant part of her problem. She seems to brush past both conversations about the conversations about concerns for addiction and her history of addiction. She has gotten some additional clarity of her staff and is looking for possible discharge places given her homelessness and significant psychosocial challenges. Mental Status Exam 2 MSE Comments: This is a well-nourished well-developed white female looking older than her stated age with hospital scrubs on with poor grooming and eye contact. No abnormal movements except for psychomotor retardation. Cooperative with exam and mild to moderate distress. Speech was decreased rate and volume. Mood described as stressed out, affect anxious and congruent. Thought process mostly organized. Thought content: Patient reports feeling overwhelmed and stressed but denies feeling anxious. Patient denies having thoughts of self-harm or harm to others. Patient denies experiencing visual hallucinations but reports occasionally hearing distant conversations. She denies suicidal or homicidal ideation, there were no delusions reported but some guardedness and paranoia suspected, she denied auditory visual hallucinations but reports preceding hospitalization endorsed their presence. Attention and concentration were limited and memory appeared unreliable but none were formally tested. She is alert and oriented to person and place. Insight, judgment and impulse control are impaired. Vitals/I&O/Wt Last Vital Signs Temp 98.0 F 07/20/23 06:00 Pulse 68 07/20/23 06:00 Resp 18 07/20/23 06:00 BP 115/61 07/20/23 06:00 Pulse Ox 94 07/20/23 06:00 O2 Del Method Room Air 07/20/23 06:00 Data NPU 07/18/23 09:37 07/18/23 09:37 Micro: Microbiology 07/17/23 09:31 Urine Culture - Final Urine,Clean Catch Microbiology 07/17/23 09:31 Urine,Clean Catch Urine Culture - Final A&P Assessment and plan (1) Psychosis: (2) History of ADHD: (3) Amphetamine use disorder, severe: (4) Anxiety: Plan This is a 53-year-old white female with significant psychosocial stressors of financial difficulties and homelessness with likely amphetamine use disorder severe but with limited insight or unwillingness to face the reality of said addiction with likely sequela of psychosis surrounding her use past and present. 1. Continue current medication. We will work with outpatient team to identify that where her Adderall use fits into successful treatment. For now we will hold ADHD medication but continue antihypertensive. Concerns surrounding use of stimulants significant. 2. Continue every 15 minute checks for safety. 3. Encourage individual, group and milieu therapy. 4. Encourage sober living treatment after discharge at the highest level of care to which he is willing to commit. 5. Consider whether there is a need for a 96-hour hold. Patient with limited insight continues to push for stimulant treatment. Involuntary Hold Information 2 96 Hour Hold: 96 Hour Involuntary Admission: No Attestations NPU 2 Medical Necessity Statement*: Inpatient hospitalization is medically necessary and the clinically appropriate intervention at this time. We will monitor medications and make changes as indicated. Likely length of stay 2-4 days. Coding Level of Care Code Acute Code for g Fwd Diagnoses Psychosis F29 History of ADHD Z86.59 Amphetamine use disorder, 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
[2023-07-20] MEDS: nicotine 2 mg Gum BUCCAL (19:37)
[2023-07-20] MEDS: trazodone 50 mg Tablet PO (19:37)
[2023-07-20 20:02] VITALS: BP 115/73; PULSE 89; RESP 16; TEMP 36.9; O2SAT 98
[2023-07-21 06:00] VITALS: BP 120/77; PULSE 99; RESP 18; O2SAT 93
[2023-07-21] MEDS: lisinopril 5 mg Tablet 2.5 MG PO (08:35)
[2023-07-21] MEDS: acetaminophen 325 mg Tablet 650 MG PO (09:53)
[2023-07-21] MEDS: nicotine 21 mg Patch 1 PATCH TRANSDERMA (11:04)
[2023-07-21] MEDS: LORazepam 2 mg Tablet PO (12:49)
[2023-07-21] MEDS: haloperidol 5 mg Tablet PO (12:49)
[2023-07-21] MEDS: diphenhydrAMINE 50 mg Capsule PO (12:49)
--- NOTE | 2023-07-21 13:10 | P.NPUPN_ITS ---
Subjective NPU 2 Subjective: Patient presented today reporting that she is feeling okay but just needing her Adderall restarted. When we discussed that not being part of the plan she asked if the Vyvanse could be substituted. We once again had a lengthy discussion about our concerns about the role of stimulants in her presentation. She had a long convoluted discussion about why she talks to herself and why she sometimes yells and gets frustrated. We discussed the 96-hour hold process and she denied any side effects to the medication. Continue to discuss use of an antipsychotic to help with her symptoms that she is currently resistant. Mental Status Exam 2 MSE Comments: This is a well-nourished well-developed white female looking older than her stated age with hospital scrubs on with poor grooming and eye contact. No abnormal movements except for psychomotor retardation. Cooperative with exam in mild to moderate distress. Speech was decreased rate and volume. Mood described as I think I am okay just need my Adderall restarted, affect anxious and congruent. Thought process disorganized. Thought content: Patient reports feeling overwhelmed and stressed but denies feeling anxious. Patient denies having thoughts of self-harm or harm to others. Patient denies experiencing visual hallucinations but reports occasionally hearing distant conversations. She denies suicidal or homicidal ideation, there were no delusions reported but some guardedness and paranoia suspected, she denied auditory visual hallucinations but reports preceding hospitalization endorsed their presence and having moments where she is talking to herself and appearing to be internally preoccupied. Attention and concentration were limited and memory appeared unreliable but none were formally tested. She is alert and oriented to person and place. Insight, judgment and impulse control are impaired. Vitals/I&O/Wt Last Vital Signs Temp 98.4 F 07/20/23 20:02 Pulse 99 07/21/23 06:00 Resp 18 07/21/23 06:00 BP 120/77 07/21/23 06:00 Pulse Ox 93 07/21/23 06:00 O2 Del Method Room Air 07/21/23 06:00 Data NPU 07/18/23 09:37 07/18/23 09:37 A&P Assessment and plan (1) Psychosis: (2) History of ADHD: (3) Amphetamine use disorder, severe: (4) Anxiety: Plan This is a 53-year-old white female with significant psychosocial stressors of financial difficulties and homelessness with likely amphetamine use disorder severe but with limited insight or unwillingness to face the reality of said addiction with likely sequela of psychosis surrounding her use past and present. 1. Continue current medication. We will work with outpatient team to identify that where her Adderall use fits into successful treatment. For now we will hold ADHD medication but continue antihypertensive. Concerns surrounding use of stimulants significant. 2. Continue every 15 minute checks for safety. 3. Encourage individual, group and milieu therapy. 4. Encourage sober living treatment after discharge at the highest level of care to which he is willing to commit. 5. Patient placed on a 96-hour hold. Patient with limited insight continues to push for stimulant treatment. Involuntary Hold Information 2 96 Hour Hold: 96 Hour Involuntary Admission: No Attestations NPU 2 Medical Necessity Statement*: Inpatient hospitalization is medically necessary and the clinically appropriate intervention at this time. We will monitor medications and make changes as indicated. Likely length of stay 3-5 days. Could be longer with 21-day hold necessary. Coding Level of Care Code Acute Code for [facility] Fwd Diagnoses Psychosis F29 History of ADHD Z86.59 Amphetamine use disorder, 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
--- NOTE | 2023-07-21 13:10 | PC.NURSE ---
Patient was served with 96-hour paperwork. Security present. Patient upset, yelling at staff and security. Hospitality Associate made multiple attempts to educate patient about 96-hour hold. Patient was resistant to education. Patient given oral B52.
[2023-07-21 13:33] VITALS: BP 116/77; PULSE 96; RESP 18; TEMP 36.6; O2SAT 96
[2023-07-21 20:17] VITALS: BP 105/70; PULSE 83; RESP 16; O2SAT 94
[2023-07-22 06:00] VITALS: BP 131/87; PULSE 92; RESP 18; TEMP 36.5; O2SAT 94
[2023-07-22] MEDS: acetaminophen 325 mg Tablet 650 MG PO (07:26)
[2023-07-22] MEDS: lisinopril 5 mg Tablet 2.5 MG PO (07:27)
[2023-07-22] MEDS: nicotine 2 mg Gum BUCCAL ×2 (08:59→18:08)
--- NOTE | 2023-07-22 10:49 | P.NPUPN_ITS ---
Subjective NPU 2 Subjective: Patient presented today reporting that she is doing fine and wants to leave. She expressed not understanding why she was here and why she could not just leave. Once again she asked whether or not she was to be prescribed the Adderall and once again I described to her the concerns we have about Adderall contributing to her likely thought disorder. She did share information about previous treatment at [facility] which is now [place] in [place] and we were able to reach out to find out as she did allude to that she was on Abilify but she reported that she was only on it for about a month because it did not work and we discussed the fact that they identified she was on it for at least 5 months. She reports that she was unable to take Abilify or Invega and that after those were show not to work she was put on Vyvanse and Adderall and everything got better. We discussed the fact that we have significant concerns about this being a reasonable path and that we wanted to get her started on an antipsychotic. She identified that she wanted to leave and did not understand how she could be on a 96-hour hold because she came here voluntarily. Mental Status Exam 2 MSE Comments: This is a well-nourished well-developed white female looking older than her stated age with hospital scrubs on with poor grooming and eye contact. No abnormal movements except for psychomotor retardation. Cooperative with exam in mild to moderate distress. Speech was decreased rate and volume. Mood described as I think I am okay just need my Adderall restarted, affect anxious and congruent. Thought process disorganized. Thought content: Patient reports feeling overwhelmed and stressed but denies feeling anxious. Patient denies having thoughts of self-harm or harm to others. Patient denies experiencing visual hallucinations but reports occasionally hearing distant conversations. She denies suicidal or homicidal ideation, there were no delusions reported but some guardedness and paranoia suspected, she denied auditory visual hallucinations but reports preceding hospitalization endorsed their presence and having moments where she is talking to herself and appearing to be internally preoccupied. Attention and concentration were limited and memory appeared unreliable but none were formally tested. She is alert and oriented to person and place. Insight, judgment and impulse control are impaired. Vitals/I&O/Wt Last Vital Signs Temp 97.7 F 07/22/23 06:00 Pulse 92 07/22/23 06:00 Resp 18 07/22/23 06:00 BP 131/87 07/22/23 06:00 Pulse Ox 94 07/22/23 06:00 O2 Del Method Room Air 07/22/23 06:00 Data NPU 07/18/23 09:37 07/18/23 09:37 A&P Assessment and plan (1) Psychosis: (2) History of ADHD: (3) Amphetamine use disorder, severe: (4) Anxiety: Plan This is a 53-year-old white female with significant psychosocial stressors of financial difficulties and homelessness with likely amphetamine use disorder severe but with limited insight or unwillingness to face the reality of said addiction with likely sequela of psychosis surrounding her use past and present. 1. Continue current medication. We will work with outpatient team to identify that where her Adderall use fits into successful treatment. For now we will hold ADHD medication but continue antihypertensive. Concerns surrounding use of stimulants significant. Will attempt to start Abilify but may need to initiate a 21-day hold to be able to initiate medication to assist her. 2. Continue every 15 minute checks for safety. 3. Encourage individual, group and milieu therapy. 4. Encourage sober living treatment after discharge at the highest level of care to which he is willing to commit. 5. Patient placed on a 96-hour hold. Patient with limited insight continues to push for stimulant treatment. Involuntary Hold Information 2 96 Hour Hold: 96 Hour Involuntary Admission: No Attestations NPU 2 Medical Necessity Statement*: Inpatient hospitalization is medically necessary and the clinically appropriate intervention at this time. We will monitor medications and make changes as indicated. Likely length of stay 3-5 days. Could be longer with 21-day hold necessary. Coding Level of Care Code Acute Code for [facility] Fwd Diagnoses Psychosis F29 History of ADHD Z86.59 Amphetamine use disorder, 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
[2023-07-22 13:57] VITALS: BP 125/75; PULSE 96; RESP 16; TEMP 36.7; O2SAT 97
[2023-07-22] MEDS: trazodone 50 mg Tablet PO (19:59)
[2023-07-22 20:44] VITALS: BP 143/70; PULSE 81; RESP 16; O2SAT 96
[2023-07-23 06:00] VITALS: RESP 15
--- NOTE | 2023-07-23 06:48 | PC.NURSE ---
Due to patients manic behavior and up a lot last night. Only RR documented.
[2023-07-23] MEDS: lisinopril 5 mg Tablet 2.5 MG PO (08:02)
[2023-07-23] MEDS: nicotine 2 mg Gum BUCCAL (08:02)
--- NOTE | 2023-07-23 08:14 | PC.NURSE ---
During morning assessment, patient denies anxiety and depression, AVH, SI, and HI. Patient was talking about getting a seahorse for a pet. Patient appears to be in good spirits, however patient has been observed responding to internal stimuli.
--- NOTE | 2023-07-23 12:35 | PC.NURSE ---
NEW ORDERS WERE RECEIVED TO START ABILIFY. RN'S ATTEMPTED TO GIVE THE ABILIFY BUT PT STARTED YELLING AND STATED, I CAN'T TAKE THAT STUFF IT'S LIKE A SALT PILL AND IT DOESN'T WORK FOR ME, I JUST NEED THE ADDERALL, IF YOU CAN TELL THAT I'M NOT ON NO DRUG HOLD THEN HE CAN GIVE THAT ADDERALL TO ME AND I WILL BE FINE. I JUST NEED THE ADDERALL, NOTHING ELSE WILL WORK. DR. MOMIN WAS NOTIFIED OF PT STATEMENT AND TANGENT REGARDING GETTING ADDERALL PRESCRIBED TO HER. THE OTHER RN ON THE FLOOR HAS SAT WITH PT AND SPOKE WITH HER IN DEPTH OFFERING SUPPORT. NO NEW ORDERS WERE RECEIVED FOR ADDERALL AT THIS TIME. WILL ATTEMPT TO GIVE MEDICATIONS LATER. SUPPORT WAS VOICED.
[2023-07-23 14:00] VITALS: BP 114/77; PULSE 81; RESP 20; TEMP 36.6; O2SAT 94
--- NOTE | 2023-07-23 14:22 | P.NPUPN_ITS ---
Subjective NPU 2 Subjective: Patient presented today reporting that she is fine and she is awake alert. And leaves. She seemed to be incapable of understanding the 96-hour hold and even after multiple ideations of her psychosis and our concerns for her safety she Endorsing confusion about why she needs to be here. After long discussions about the risks, benefits and alternatives of initiating an antipsychotic most recently Invega she understood and agreed to proceed as is documented in this note. However at times she wavered and returned to the the fact that she was going to get her close and leave and we could just send the medication to a pharmacy. Mental Status Exam 2 MSE Comments: This is a well-nourished well-developed white female looking older than her stated age with hospital scrubs on with poor grooming and eye contact. No abnormal movements except for psychomotor retardation. Cooperative with exam in mild to moderate distress. Speech was decreased rate and volume. Mood described as I think I am okay just need my Adderall restarted, affect anxious and congruent. Thought process disorganized. Thought content: Patient reports feeling overwhelmed and stressed but denies feeling anxious. Patient denies having thoughts of self-harm or harm to others. Patient denies experiencing visual hallucinations but reports occasionally hearing distant conversations. She denies suicidal or homicidal ideation, there were no delusions reported but some guardedness and paranoia suspected, she denied auditory visual hallucinations but reports preceding hospitalization endorsed their presence and having moments where she is talking to herself and appearing to be internally preoccupied. Attention and concentration were limited and memory appeared unreliable but none were formally tested. She is alert and oriented to person and place. Insight, judgment and impulse control are impaired. Vitals/I&O/Wt Last Vital Signs Temp 98.0 F 07/22/23 13:57 Pulse 81 07/22/23 20:44 Resp 15 07/23/23 06:00 BP 143/70 07/22/23 20:44 Pulse Ox 96 07/22/23 20:44 O2 Del Method Room Air 07/22/23 20:44 Data NPU 07/18/23 09:37 07/18/23 09:37 A&P Assessment and plan (1) Psychosis: (2) History of ADHD: (3) Amphetamine use disorder, severe: (4) Anxiety: Plan This is a 53-year-old white female with significant psychosocial stressors of financial difficulties and homelessness with likely amphetamine use disorder severe but with limited insight or unwillingness to face the reality of said addiction with likely sequela of psychosis surrounding her use past and present. 1. Continue current medication. We will work with outpatient team to identify that where her Adderall use fits into successful treatment. For now we will hold ADHD medication but continue antihypertensive. Concerns surrounding use of stimulants significant. Will attempt to start Invega but may need to initiate a 21-day hold to be able to initiate medication to assist her. 2. Continue every 15 minute checks for safety. 3. Encourage individual, group and milieu therapy. 4. Encourage sober living treatment after discharge at the highest level of care to which he is willing to commit. 5. Patient placed on a 96-hour hold. Patient with limited insight continues to push for stimulant treatment. Involuntary Hold Information 2 96 Hour Hold: 96 Hour Involuntary Admission: No Attestations NPU 2 Medical Necessity Statement*: Inpatient hospitalization is medically necessary and the clinically appropriate intervention at this time. We will monitor medications and make changes as indicated. Likely length of stay 3-5 days. Could be longer with 21-day hold necessary. Coding Level of Care Code Acute Code for g Fwd Diagnoses Psychosis F29 History of ADHD Z86.59 Amphetamine use disorder, 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
[2023-07-23] MEDS: OLANZapine 5 mg ODT PO (16:17)
[2023-07-23] MEDS: paliperidone ER 6 mg Tablet PO (18:58)
[2023-07-23 20:38] VITALS: BP 122/74; PULSE 90; RESP 18; TEMP 36.5; O2SAT 98
[2023-07-24] MEDS: hyDROXYzine 25 mg Capsule 50 MG PO ×2 (02:36→20:45)
[2023-07-24 06:00] VITALS: BP 159/71; PULSE 87; RESP 16; TEMP 36.6; O2SAT 97
[2023-07-24] MEDS: paliperidone ER 6 mg Tablet PO (08:17)
[2023-07-24] MEDS: lisinopril 5 mg Tablet 2.5 MG PO (08:17)
--- NOTE | 2023-07-24 11:26 | P.NPUPN_ITS ---
Subjective NPU 2 Subjective: Patient presented today continuing to be quite focused on when discharged to happen but somewhat less intrusive about that issue. She took her medication as prescribed and we discussed the fact that her continuing to take the Invega is her best approach to getting discharged sooner rather than later. She was hoping that she would be discharged for sure on Wednesday forgetting that the 96- hour hold did not include the weekend or holidays. She denied any specific side effects of the medication. Mental Status Exam 2 MSE Comments: This is a well-nourished well-developed white female looking older than her stated age with hospital scrubs on with poor grooming and eye contact. No abnormal movements except for psychomotor retardation. Cooperative with exam in mild to moderate distress. Speech was decreased rate and volume. Mood described as I think I am okay just need my Adderall restarted, affect anxious and congruent. Thought process disorganized. Thought content: Patient reports feeling overwhelmed and stressed but denies feeling anxious. Patient denies having thoughts of self-harm or harm to others. Patient denies experiencing visual hallucinations but reports occasionally hearing distant conversations. She denies suicidal or homicidal ideation, there were no delusions reported but some guardedness and paranoia suspected, she denied auditory visual hallucinations but reports preceding hospitalization endorsed their presence and having moments where she is talking to herself and appearing to be internally preoccupied. Attention and concentration were limited and memory appeared unreliable but none were formally tested. She is alert and oriented to person and place. Insight, judgment and impulse control are impaired. Vitals/I&O/Wt Last Vital Signs Temp 97.9 F 07/24/23 06:00 Pulse 87 07/24/23 06:00 Resp 16 07/24/23 06:00 BP 159/71 07/24/23 06:00 Pulse Ox 97 07/24/23 06:00 O2 Del Method Room Air 07/24/23 06:00 Data NPU 07/18/23 09:37 07/18/23 09:37 A&P Assessment and plan (1) Psychosis: (2) History of ADHD: (3) Amphetamine use disorder, severe: (4) Anxiety: Plan This is a 53-year-old white female with significant psychosocial stressors of financial difficulties and homelessness with likely amphetamine use disorder severe but with limited insight or unwillingness to face the reality of said addiction with likely sequela of psychosis surrounding her use past and present. 1. Continue current medication. We will work with outpatient team to identify that where her Adderall use fits into successful treatment. For now we will hold ADHD medication but continue antihypertensive. Concerns surrounding use of stimulants significant. Will attempt to start Invega but may need to initiate a 21-day hold to be able to initiate medication to assist her. 2. Continue every 15 minute checks for safety. 3. Encourage individual, group and milieu therapy. 4. Encourage sober living treatment after discharge at the highest level of care to which he is willing to commit. 5. Patient placed on a 96-hour hold. Patient with limited insight continues to push for stimulant treatment. Involuntary Hold Information 2 96 Hour Hold: 96 Hour Involuntary Admission: No Attestations NPU 2 Medical Necessity Statement*: Inpatient hospitalization is medically necessary and the clinically appropriate intervention at this time. We will monitor medications and make changes as indicated. Likely length of stay 3-5 days. Could be longer with 21-day hold necessary. Coding Level of Care Code Acute Code for [facility] Fwd Diagnoses Psychosis F29 History of ADHD Z86.59 Amphetamine use disorder, 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
[2023-07-24 14:00] VITALS: BP 117/76; PULSE 102; RESP 18; TEMP 36.6; O2SAT 97
[2023-07-24] MEDS: trazodone 50 mg Tablet PO (20:45)
[2023-07-24 21:09] VITALS: BP 111/60; PULSE 97; RESP 18; TEMP 36.2; O2SAT 95
[2023-07-25 06:00] VITALS: BP 118/76; PULSE 80; RESP 16; TEMP 36.7; O2SAT 98
--- NOTE | 2023-07-25 07:45 | P.NPUPN_ITS ---
Subjective NPU 2 Subjective: Patient is in today reporting continued desire to discharge and having limited insight to her condition per staff reports and direct observation. She continues to take medication with significant coaxing. Continue to discuss need for continued treatment and possibility of a 21-day hold but she is lobbying for discharge tomorrow. She denied any side effects of the medication. Explained to Dr. Aviles will be on service tomorrow and will make all decisions about discharge while he is on service. Mental Status Exam 2 MSE Comments: This is a well-nourished well-developed white female looking older than her stated age with hospital scrubs on with poor grooming and eye contact. No abnormal movements except for psychomotor retardation. Cooperative with exam in mild to moderate distress. Speech was decreased rate and volume. Mood described as I think I am okay just need my Adderall restarted, affect anxious and congruent. Thought process disorganized. Thought content: Patient reports feeling overwhelmed and stressed but denies feeling anxious. Patient denies having thoughts of self-harm or harm to others. Patient denies experiencing visual hallucinations but reports occasionally hearing distant conversations. She denies suicidal or homicidal ideation, there were no delusions reported but some guardedness and paranoia suspected, she denied auditory visual hallucinations but reports preceding hospitalization endorsed their presence and having moments where she is talking to herself and appearing to be internally preoccupied. Attention and concentration were limited and memory appeared unreliable but none were formally tested. She is alert and oriented to person and place. Insight, judgment and impulse control are impaired. Vitals/I&O/Wt Last Vital Signs Temp 98.1 F 07/25/23 06:00 Pulse 80 07/25/23 06:00 Resp 16 07/25/23 06:00 BP 118/76 07/25/23 06:00 Pulse Ox 98 07/25/23 06:00 O2 Del Method Room Air 07/25/23 06:00 Weight last 48 hrs Weight 69.853 kg Data NPU 07/18/23 09:37 07/18/23 09:37 A&P Assessment and plan (1) Psychosis: (2) History of ADHD: (3) Amphetamine use disorder, severe: (4) Anxiety: Plan This is a 53-year-old white female with significant psychosocial stressors of financial difficulties and homelessness with likely amphetamine use disorder severe but with limited insight or unwillingness to face the reality of said addiction with likely sequela of psychosis surrounding her use past and present. 1. Continue current medication. We will work with outpatient team to identify that where her Adderall use fits into successful treatment. For now we will hold ADHD medication but continue antihypertensive. Concerns surrounding use of stimulants significant. Will attempt to start Invega but may need to initiate a 21-day hold to be able to initiate medication to assist her. 2. Continue every 15 minute checks for safety. 3. Encourage individual, group and milieu therapy. 4. Encourage sober living treatment after discharge at the highest level of care to which he is willing to commit. 5. Patient placed on a 96-hour hold. Patient with limited insight continues to push for stimulant treatment. Involuntary Hold Information 2 96 Hour Hold: 96 Hour Involuntary Admission: No Attestations NPU 2 Medical Necessity Statement*: Inpatient hospitalization is medically necessary and the clinically appropriate intervention at this time. We will monitor medications and make changes as indicated. Likely length of stay 3-5 days. Could be longer with 21-day hold necessary. Coding Level of Care Code Acute Code for [facility] Fwd Diagnoses Psychosis F29 History of ADHD Z86.59 Amphetamine use disorder, 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
[2023-07-25] MEDS: paliperidone ER 6 mg Tablet PO (09:27)
[2023-07-25] MEDS: lisinopril 5 mg Tablet 2.5 MG PO (09:27)
[2023-07-25] MEDS: flu vacc pf 2023-24 (6 mos+) 60 MCG IM (12:57)
[2023-07-25 14:00] VITALS: BP 102/69; PULSE 106; RESP 20; TEMP 36.6; O2SAT 98
[2023-07-25] MEDS: hyDROXYzine 25 mg Capsule 50 MG PO (18:07)
[2023-07-25 19:57] VITALS: BP 110/63; PULSE 107; RESP 16; TEMP 36.7; O2SAT 97
[2023-07-25] MEDS: trazodone 50 mg Tablet PO (20:33)
[2023-07-26 06:00] VITALS: BP 106/69; PULSE 73; RESP 16; TEMP 36.7; O2SAT 96
[2023-07-26] MEDS: lisinopril 5 mg Tablet 2.5 MG PO (08:32)
[2023-07-26] MEDS: paliperidone ER 6 mg Tablet PO (08:32)
[2023-07-26 14:00] VITALS: BP 90/54; PULSE 85; RESP 13; TEMP 36.3; O2SAT 98
[2023-07-26] MEDS: OLANZapine 5 mg ODT PO (18:25)
--- NOTE | 2023-07-26 18:31 | PC.NURSE ---
PATIENT REQUESTING MEDICATION FOR ANXIETY. ADMINISTERED ZYPREXA 5MG ODT. PATIENT RETURNED TO ROOM TO SHOWER
--- NOTE | 2023-07-26 18:32 | P.NPUPN_ITS ---
Subjective NPU 2 Subjective: 53-year-old female admitted with psychos is with a history of reported use of amphetamines for ADHD. The patient had continued to perseverate about needing to simply be placed on Adderall or Vyvanse to help her with her problems with focus. Patient when asked about her symptoms of ADHD had stated that it helped her feel good . She had reported that she had been homeless for several months. She had stated that she had previously been living [place] hours away but had been transplanted here for unspecified reasons. She had continued to have conversations on the milieu with no 1 in particular regarding her need to leave here. The patient had minimized hearing or seeing things but again appeared to have conversation with people that did not up apparently be in the vicinity. Mental Status Exam 2 MSE Comments: This is a well-nourished well-developed white female looking older than her stated age with hospital scrubs on with poor grooming and eye contact. No abnormal movements except for psychomotor retardation. She was cooperative with exam in mild to moderate distress. Speech was decreased in rate and volume. Mood described as okay , affect was bizarre and odd. Thought process remained disorganized. Thought content: Patient reports feeling overwhelmed and stressed but denies feeling anxious. Patient denies having thoughts of self-harm or harm to others. Patient denies experiencing visual or auditory hallucinations but did appear at times to be responding to internal stimuli. She denies suicidal or homicidal ideation, There was continued evidence of paranoia. She denied auditory visual hallucinations but reports preceding hospitalization endorsed their presence and having moments where she is talking to herself and appearing to be internally preoccupied. Attention and concentration were limited and memory appeared unreliable but none were formally tested. She is alert and oriented to person and place. Insight, judgment and impulse control are impaired. Vitals/I&O/Wt Last Vital Signs Temp 97.4 F L 07/26/23 14:00 Pulse 85 07/26/23 14:00 Resp 13 07/26/23 14:00 BP 90/54 07/26/23 14:00 Pulse Ox 98 07/26/23 14:00 O2 Del Method Room Air 07/26/23 06:00 Weight last 48 hrs Weight 69.853 kg Data NPU 07/18/23 09:37 07/18/23 09:37 A&P Assessment and plan (1) Psychosis: (2) History of ADHD: (3) Amphetamine use disorder, severe: (4) Anxiety: Plan This is a 53-year-old white female with significant psychosocial stressors of financial difficulties and homelessness with likely amphetamine use disorder severe but with limited insight or unwillingness to face the reality of said addiction with likely sequela of psychosis surrounding her use past and present. 1. Continue current medication. We will work with outpatient team to identify that where her Adderall use fits into successful treatment. For now we will hold ADHD medication but continue antihypertensive. Concerns surrounding use of stimulants significant. Continue Invega 6mg daily. 2. Continue every 15 minute checks for safety. 3. Encourage individual, group and milieu therapy. 4. Encourage sober living treatment after discharge at the highest level of care to which he is willing to commit. 5. Patient placed on a 96-hour hold. Patient with limited insight continues to push for stimulant treatment. Involuntary Hold Information 2 96 Hour Hold: 96 Hour Involuntary Admission: No Attestations NPU 2 Medical Necessity Statement*: Inpatient hospitalization is medically necessary and the clinically appropriate intervention at this time. We will monitor medications and make changes as indicated. Likely length of stay 7-10 days. Could be longer with 21-day hold necessary. Coding Level of Care Code Acute Code for [facility] Fwd Diagnoses Psychosis F29 History of ADHD Z86.59 Amphetamine use disorder, 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
[2023-07-26] MEDS: trazodone 50 mg Tablet PO (20:43)
[2023-07-26 21:19] VITALS: BP 108/64; PULSE 96; RESP 18; TEMP 36.4; O2SAT 98
[2023-07-27 06:00] VITALS: BP 114/74; PULSE 98; RESP 18; TEMP 36.4; O2SAT 98
[2023-07-27] MEDS: nicotine 2 mg Gum BUCCAL (07:59)
[2023-07-27] MEDS: OLANZapine 5 mg ODT PO (10:04)
[2023-07-27 14:00] VITALS: BP 122/77; PULSE 87; RESP 16; TEMP 37.2; O2SAT 99
[2023-07-27] MEDS: acetaminophen 325 mg Tablet 650 MG PO (14:20)
[2023-07-27 14:43] VITALS: BP 114/74; PULSE 98; RESP 18; TEMP 36.4; O2SAT 98
--- NOTE | 2023-07-27 19:30 | P.NPUDS_ITS ---
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 Discontinued dextroamphetamine-amphetamine [Adderall] 20 mg Tablet 20 mg PO BID Rx Instructions: administer doses at least 4-6 hours apart Discharge Orders: Discharge Order (Routine); Ordered 07/27/23 Ordered By: Brandon Aviles Referrals: [facility] [Other] - 08/17/23 9:30 am (Initial appointment with Donna Acevedo) [facility] [Other] - 07/27/23 5:00 pm Discharge Diet: Usual diet Discharge Activity: Resume usual activity Patient Instructions: Trazodone (By mouth) (Desyrel, Desyrel Dividose, Oleptro, Trazamine), Paliperidone (By mouth) (Invega), Anxiety (DC), Psychotic Disorder (DC), Opioid Safety, Pain Management Discharge Attestations NPU Time Spent in Discharge Care*: less than 30 min Specific Discharge Activities: Specific discharge activities: educating patient Coding Level of Care Code Acute Code for Chg Fwd Diagnoses Psychosis F29 History of ADHD Z86.59 Amphetamine use disorder, 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
== END 2023-07-27 15:50 | DRG 885 ==
LOC: ER 11:39 → NP 11:54
PROVIDERS: Admitting Provider Psychiatry & Neurology Psychiatry; Emergency Provider Internal Medicine; Visit Provider Psychiatry & Neurology Psychiatry
DX: F29 Unspecified psychosis not due to a substance or known physiological condition (principal); Z59.00 Homelessness unspecified; F90.9 Attention-deficit hyperactivity disorder, unspecified type; F41.9 Anxiety disorder, unspecified; Z56.0 Unemployment, unspecified
CPT/HCPCS: 80048; 80053; 80306; 80307; 81001; 81025; 84443; 85025; 87086; 90471; 90686; 97150; 97165; 99285; Q0163

== ENCOUNTER 2024-03-06 13:35 | Emergency (ER) | payer MEDICAID, SELFPAY ==
[2024-03-06 13:41] VITALS: BP 133/69; PULSE 89; RESP 16; TEMP 36.6; O2SAT 95; BMI 25.7
[2024-03-06 14:34] LABS: Basophils # 0.1 10^3/uL (0.0-0.1); Basophils % 0.7 %; Eosinophils # 0.3 10^3/uL (0.0-0.8); Eosinophils % 2.7 %; Hematocrit 46.7 % (36-47); Lymphocytes % 32.1 %; Mean Corpuscular HGB Conc 32.5 g/dL (30-55); Mean Corpuscular Volume 92.3 fl (85-98); Mean Platelet Volume 10.1 fL (7.4-10.4); Monocytes # 0.7 10^3/uL (0.2-0.9); Neutrophils % 56.4 %; Nucleated Red Blood Cells % 0 %; Platelet Count 255 10^3/cmm (157-399); Red Blood Count 5.06 10^6/uL (3.85-5.65); Red Cell Distribution Width 13.7 % (12.1-15.1); White Blood Count 9.22 10^3/uL (3.29-11.43)
[2024-03-06 14:52] LABS: Alanine Aminotransferase 19 U/L (0-33); Albumin Level 4.3 g/dL (3.5-5.2); Alkaline Phosphatase 83 U/L (35-105); Anion Gap 12.4 (5-19); Aspartate Amino Transferase 22 U/L (0-32); Blood Urea Nitrogen 16 mg/dL (6-20); Carbon Dioxide 25 mmol/L (22-29); Chloride 107 mmol/L (98-107); Creatinine Clr Calc Pharmacy 102.7693; Glomerular Filtration Rate 104.6 mL/min (90-130); Glucose 95 mg/dL (65-115); Osmolality Calculated 291 mOsm/kg (285-295); Potassium 4.4 mmol/L (3.5-5.1); Sodium 140 mmol/L (136-145); Total Bilirubin 0.2 mg/dL (0.15-1.2); Total Protein 7.3 g/dL (6.6-8.7)
[2024-03-06 15:47] VITALS: BP 151/78; PULSE 85; RESP 16; O2SAT 94
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
[2024-03-06 16:13] VITALS: BP 139/73; PULSE 82; RESP 16; O2SAT 99
--- NOTE | 2024-03-07 07:34 | DCPLANNER ---
Message sent to Clinics and [facility]. For follow up and PCP
== END 2024-03-06 16:14 | disposition home or self-care (01) ==
PROVIDERS: Emergency Medicine; Emergency Provider Physician Assistant
DX: Z76.0 Encounter for issue of repeat prescription (principal); F98.8 Other specified behavioral and emotional disorders with onset usually occurring in childhood and adolescence; Z79.899 Other long term (current) drug therapy
CPT/HCPCS: 36415; 80053; 85025; 99283

== ENCOUNTER 2024-03-31 22:22 | Emergency (ER) | payer MEDICAID, SELFPAY ==
--- NOTE | 2024-03-31 22:31 | ED_ITS ---
HPI - Abdominal Pain 2 General: Chief Complaint: Nausea/Vomiting/Diarrhea Stated Complaint: ABD PAIN Time Seen by Provider: 03/31/24 22:24 Source: patient and EMS Mode of arrival: EMS Limitations: no limitations History of Present Illness: 54-year-old female is here with EMS she states that she had taken some marijuana Gummies this evening denies having vomiting and states she feels weird. Denies any worse improved factors has had some slight diffuse abdominal pain. Associated Symptoms: Reports nausea and vomiting; Denies chills, diarrhea, dysuria and fever(s) Related Data Previous Rx's Medication Instructions Recorded atorvastatin 10 mg tablet 10 mg PO DAILY #30 tabs 03/06/24 lisdexamfetamine 60 mg capsule 60 mg PO DAILY #30 caps 03/06/24 (Vyvanse) lisinopril 2.5 mg tablet 2.5 mg PO DAILY 30 days #30 tabs 03/06/24 trazodone 50 mg tablet 50 mg PO BEDTIME #30 tabs 03/06/24 ondansetron 4 mg disintegrating 4 mg PO Q6H PRN nausea and 03/31/24 tablet vomiting #14 tabs Allergies Allergy/AdvReac Type Severity Reaction Status Date / Time No Known Allergies Allergy Verified 03/06/24 13:49 Review of Systems 2 Const: Denies: fever(s), chills, body aches or change in appetite ENMT: Denies: throat pain or dental pain Card: Denies: chest pain Resp: Denies: dyspnea GI: Reports: abdominal pain, nausea and vomiting; Denies: diarrhea : Denies: dysuria Musc: Denies: neck pain or back pain Skin/Breast: Denies: rash Neuro: Denies: headache(s) PFS ED 2 PFSH: Medical History History of ADHD Physical Exam 2 Const: COMMON NORMALS: no acute distress, patient oriented x3 and healthy appearing HENMT: COMMON NORMALS: normocephalic and atraumatic HEAD & SCALP: n ormocephalic and atraumatic Eye: COMMON NORMALS: conjunctivae normal CONJUNCTIVA: Yes conjunctivae normal Neck/C-Spine: COMMON NORMALS: full ROM and supple Chest: COMMONS NORMALS: normal inspection of the chest Resp: COMMON NORMALS: normal respiratory effort, No retractions, No use of accessory muscles and clear to auscultation bilaterally AUSCULTATION: clear to auscultation bilaterally Cardio: COMMON NORMALS: regular rate, regular rhythm and No murmurs present (Cardio) RATE: regular rate RHYTHM: regular rhythm GI: COMMON NORMALS: Normal to inspection, nondistended, normoactive bowel sounds present, Soft to palpation, non-tender and no masses PALPATION: Yes Soft to palpation Extremity: COMMON NORMALS: normal to inspection and full ROM Neuro: COMMON NORMALS: patient oriented x3, moves all extremities and no focal motor deficits Psych: COMMON NORMALS: mental status grossly normal, Normal thought process present and cooperative THOUGHT PROCESS: Normal thought process present Skin: COMMON NORMALS: no rashes or lesions noted and no wounds GENERAL SKIN EXAM: no rashes or lesions noted Course 2 Vital Signs: Vital signs: Vital Signs Temperature 98.4 F 03/31/24 22:43 Pulse Rate 20 L 03/31/24 22:43 Respiratory Rate 20 H 03/31/24 22:43 Blood Pressure 124/92 03/31/24 22:43 Pulse Oximetry 98 03/31/24 22:43 MDM - Abdominal Pain Medical Decision Making Patient presents here with nausea vomiting after taking marijuana gummy she feels much improved here blood works normal abdominal exam is benign she stable for discharge follow-up PCP return if worsening. Medical Records I reviewed the patient's medical records. Lab Data I reviewed the patient's lab results. 03/31/24 22:39 03/31/24 22:39 Labs/Radiology: Laboratory Results WBC 13.07 10^3/uL (3.29-11.43) H 03/31/24 22:39 RBC 4.90 10^6/uL (3.85-5.65) 03/31/24 22:39 Hgb 14.80 g/dL (11.27-16.99) 03/31/24 22:39 Hct 45.1 % (36-47) 03/31/24 22:39 MCV 92.0 fl (85-98) 03/31/24 22:39 MCH 30.2 pg (27-33) 03/31/24 22:39 MCHC 32.8 g/dL (30-55) 03/31/24 22:39 RDW 13.3 % (12.1-15.1) 03/31/24 22:39 Plt Count 293 10^3/cmm (157-399) 03/31/24 22:39 MPV 10.0 fL (7.4-10.4) 03/31/24 22:39 Neut % (Auto) 50.9 % 03/31/24 22:39 Lymph % (Auto) 38.1 % 03/31/24 22:39 Mayes % (Auto) 7.0 % 03/31/24 22:39 Eos % (Auto) 3.0 % 03/31/24 22:39 Baso % (Auto) 0.7 % 03/31/24 22:39 Neut # (Auto) 6.65 10^3/uL (1.8-7.7) 03/31/24 22: Lymph # (Auto) 5.0 10^3/uL (0.8-4.8) H 03/31/24 22:39 Mayes # (Auto) 0.9 10^3/uL (0.2-0.9) 03/31/24 22:39 Eos # (Auto) 0.4 10^3/uL (0.0-0.8) 03/31/24 22:39 Baso # (Auto) 0.1 10^3/uL (0.0-0.1) 03/31/24 22:39 Nucleated RBC % (auto) 0 % 03/31/24 22: Nucleated RBCs # 0.0 /100WBC 03/31/24 22:39 Sodium 142 mmol/L (136-145) 03/31/24 22:39 Potassium 3.8 mmol/L (3.5-5.1) 03/31/24 22:39 Chloride 106 mmol/L (98-107) 03/31/24 22:39 Carbon Dioxide 26 mmol/L (22-29) 03/31/24 22:39 Anion Gap 13.8 (5-19) 03/31/24 22:39 BUN 15 mg/dL (6-20) 03/31/24 22:39 Creatinine 0.6 mg/dL (0.5-0.9) 03/31/24 22:39 GFR Calculation 104.6 mL/min (90-130) 03/31/24 22:39 Glucose 139 mg/dL (65-115) H 03/31/24 22:39 Calculated Osmolality 297 mOsm/kg (285-295) H 03/31/24 22:39 Calcium 9.5 mg/dL (8.5-10.5) 03/31/24 22:39 Total Bilirubin 0.2 mg/dL (0.15-1.2) 03/31/24 22:39 AST 20 U/L (0-32) 03/31/24 22:39 ALT 17 U/L (0-33) 03/31/24 22:39 Alkaline Phosphatase 79 U/L (35-105) 03/31/24 22:39 Total Protein 7.1 g/dL (6.6-8.7) 03/31/24 22:39 Albumin 4.3 g/dL (3.5-5.2) 03/31/24 22:39 Globulin 2.8 g/dL (1.3-4.6) 03/31/24 22:39 Lipase 29 U/L (13-60) 03/31/24 22:39 No radiology studies performed this visit Discharge Plan Discharge Patient Disposition: Home Clinical Impression: Vomiting Condition: Stable Prescriptions: New ondansetron 4 mg tablet,disintegrating 4 mg PO Q6H PRN (Reason: nausea and vomiting) Qty: 14 0RF No Action lisdexamfetamine [Vyvanse] 60 mg capsule 60 mg PO DAILY Qty: 30 0RF atorvastatin 10 mg tablet 10 mg PO DAILY Qty: 30 0RF lisinopril 2.5 mg Tablet 2.5 mg PO DAILY 30 Days Qty: 30 1RF trazodone 50 mg tablet 50 mg PO BEDTIME Qty: 30 0RF Discharge Orders: Discharge ED (Routine); Ordered 03/31/24 Ordered By: Concepcion Keller Discharge Diet: Advance as tolerated Discharge Activity: Resume usual activity Patient Instructions: Acute Nausea and Vomiting (ED) Coding Level of Care Code ED Fisher Crab for Pavel Cormier
--- NOTE | 2024-03-31 22:32 | ECG_ITS ---
[facility]: 2024-03[facility]31 Pat Name: Sadie Regalado Department: Room: Gender: Female Staff Training And Development Manager: : 1970 Requested By: Concepcion Keller Order Number: [id number] Tamiko MD: ORAL WILEY Measurements Intervals Streeter Rate: 104 P: 78 WY: 189 QRS: 77 QRSD: 85 T: 64 QT: 363 QTc: 479 Interpretive Statements SINUS TACHYCARDIA POSSIBLE LEFT ATRIAL ENLARGEMENT [-0.1mV P-WAVE IN V1/V2] ABNORMAL RHYTHM ECG No previous ECG available for comparison Electronically Signed On 04-03-2024 19:28:07 COMPLIANCE INTERN by ORAL WILEY [email or web address]
[2024-03-31] MEDS: ondansetron 2 mg/ML SDV 2 mL 4 MG IVP (22:42)
[2024-03-31 22:43] VITALS: BP 124/92; PULSE 20; RESP 20; TEMP 36.9; O2SAT 98; BMI 29.2
[2024-03-31 23:01] LABS: Basophils # 0.1 10^3/uL (0.0-0.1); Basophils % 0.7 %; Eosinophils # 0.4 10^3/uL (0.0-0.8); Hematocrit 45.1 % (36-47); Lymphocytes % 38.1 %; Mean Corpuscular HGB Conc 32.8 g/dL (30-55); Mean Corpuscular Hemoglobin 30.2 pg (27-33); Monocytes # 0.9 10^3/uL (0.2-0.9); Neutrophils # 6.65 10^3/uL (1.8-7.7); Neutrophils % 50.9 %; Nucleated Red Blood Cells % 0 %; Platelet Count 293 10^3/cmm (157-399); Red Cell Distribution Width 13.3 % (12.1-15.1); White Blood Count 13.07 10^3/uL (3.29-11.43)
[2024-03-31 23:20] LABS: Alanine Aminotransferase 17 U/L (0-33); Albumin Level 4.3 g/dL (3.5-5.2); Alkaline Phosphatase 79 U/L (35-105); Aspartate Amino Transferase 20 U/L (0-32); Blood Urea Nitrogen 15 mg/dL (6-20); Calcium 9.5 mg/dL (8.5-10.5); Carbon Dioxide 26 mmol/L (22-29); Chloride 106 mmol/L (98-107); Creatinine Clr Calc Pharmacy 108.9811; Globulin 2.8 g/dL (1.3-4.6); Glomerular Filtration Rate 104.6 mL/min (90-130); Glucose 139 mg/dL (65-115); Lipase 29 U/L (13-60); Osmolality Calculated 297 mOsm/kg (285-295); Sodium 142 mmol/L (136-145); Total Bilirubin 0.2 mg/dL (0.15-1.2); Total Protein 7.1 g/dL (6.6-8.7)
[2024-03-31 23:30] LABS: Anion Gap 13.8 (5-19); Potassium 3.8 mmol/L (3.5-5.1)
[2024-03-31 23:31] LABS: Slide Review Slide Review Perform
[2024-04-01 00:19] VITALS: BP 139/89; PULSE 87; O2SAT 98
== END 2024-04-01 00:20 | disposition home or self-care (01) ==
PROVIDERS: Emergency Provider Emergency Medicine
DX: R11.10 Vomiting, unspecified (principal)
CPT/HCPCS: 36415; 80053; 83690; 85025; 93005; 96374; 99284; J2405

== ENCOUNTER 2024-04-17 13:37 | Emergency (ER) | payer MEDICAID, SELFPAY ==
[2024-04-17 13:45] VITALS: BP 121/75; PULSE 93; RESP 16; TEMP 36.4; O2SAT 97; BMI 25.7
--- NOTE | 2024-04-17 13:57 | W.ED.RECABL ---
HPI - Recheck/Abnormal Lab/Rx General: Chief Complaint: Recheck/Abnormal Lab/Rx Stated Complaint: High bp Time Seen by Provider: 04/17/24 13:52 Source: patient Mode of arrival: ambulatory Limitations: no limitations History of Present Illness: 54-year-old female states that she needs to get a PCP and she is out of her meds she has been having some slight anxiety and is concerned she is hypertensive as she has been out of her hypertensive meds she has no other mental complaints denies any chest pain. Related Data Previous Rx's Medication Instructions Recorded ondansetron 4 mg disintegrating 4 mg PO Q6H PRN nausea and 03/31/24 tablet vomiting #14 tabs atorvastatin 10 mg tablet 10 mg PO DAILY #30 tabs 04/17/24 lisdexamfetamine 60 mg capsule 60 mg PO DAILY #30 caps 04/17/24 (Vyvanse) lisinopril 2.5 mg tablet 2.5 mg PO DAILY 30 days #30 tabs 04/17/24 trazodone 50 mg tablet 50 mg PO BEDTIME #30 tabs 04/17/24 Allergies Allergy/AdvReac Type Severity Reaction Status Date / Time No Known Allergies Allergy Verified 04/17/24 13:52 Review of Systems Const: Denies: fever(s), chills, body aches or change in appetite Eyes: Denies: blurry vision or eye discomfort ENMT: Denies: throat pain or dental pain Card: Denies: chest pain Resp: Denies: dyspnea GI: Denies: abdominal pain, nausea, vomiting or diarrhea Musc: Denies: neck pain or back pain Skin/Breast: Denies: rash Neuro: Denies: headache(s) PFS ED PFSH: Medical History History of ADHD Physical Exam Const: COMMON NORMALS: no acute distress, patient oriented x3 and healthy appearing HENMT: COMMON NORMALS: normocephalic and atraumatic HEAD & SCALP: normocephalic and atraumatic Eye: COMMON NORMALS: Equal, round and reactive pupils present and EOMs intact bilaterally PUPIL: Yes Equal, round and reactive pupils present Neck/C-Spine: COMMON NORMALS: full ROM and supple Chest: COMMONS NORMALS: normal inspection of the chest and normal palpation of entire chest wall Resp: COMMON NORMALS: normal respiratory effort, No retractions, No use of accessory muscles and clear to auscultation bilaterally AUSCULTATION: clear to auscultation bilaterally Cardio: COMMON NORMALS: regular rate, regular rhythm and No murmurs present (Cardio) RATE: regular rate RHYTHM: regular rhythm Extremity: COMMON NORMALS: normal to inspection and full ROM Neuro: COMMON NORMALS: patient oriented x3, moves all extremities and no focal motor deficits Psych: COMMON NORMALS: mental status grossly normal, Normal thought process present and cooperative THOUGHT PROCESS: Normal thought process present Skin: COMMON NORMALS: no rashes or lesions noted and no wounds GENERAL SKIN EXAM: no rashes or lesions noted Course Vital Signs: Vital signs: Vital Signs Temperature 97.5 F L 04/17/24 13:45 Pulse Rate 93 04/17/24 13:45 Respiratory Rate 16 04/17/24 13:45 Blood Pressure 121/75 04/17/24 13:45 Pulse Oximetry 97 04/17/24 13:45 Oxygen Delivery Me thod Room Air 04/17/24 13:45 MDM - Recheck/Abnormal Lab/Rx Medical Decision Making Patient presents here for medication refill we will refill her meds we will put a referral in for her PCP she has no other medical complaints her blood pressure here is normal No radiology studies performed this visit Discharge Plan Discharge Patient Disposition: Home Clinical Impression: Encounter for medication refill Condition: Stable Prescriptions: Continued trazodone 50 mg tablet 50 mg PO BEDTIME Qty: 30 0RF atorvastatin 10 mg tablet 10 mg PO DAILY Qty: 30 0RF lisinopril 2.5 mg Tablet 2.5 mg PO DAILY 30 Days Qty: 30 1RF lisdexamfetamine [Vyvanse] 60 mg capsule 60 mg PO DAILY Qty: 30 0RF No Action ondansetron 4 mg tablet,disintegrating 4 mg PO Q6H PRN (Reason: nausea and vomiting) Qty: 14 0RF Discharge Orders: Discharge ED (Routine); Ordered 04/17/24 Ordered By: Concepcion Keller Discharge Diet: Advance as tolerated Discharge Activity: Resume usual activity Patient Instructions: Medicine Refill (ED) Coding Level of Care Code ED Engineer Automated Equipment for Pavel Cormier
[2024-04-17 14:01] VITALS: BP 104/64; PULSE 103; O2SAT 95
--- NOTE | 2024-04-17 14:27 | DCPLANNER ---
message wpfm for er f/u
== END 2024-04-17 14:03 | disposition home or self-care (01) ==
PROVIDERS: Emergency Provider Emergency Medicine
DX: Z76.0 Encounter for issue of repeat prescription (principal)
CPT/HCPCS: 99281

== ENCOUNTER 2024-05-25 12:33 | Emergency (ER) | payer MEDICAID, SELFPAY ==
[2024-05-25 12:40] VITALS: BP 138/96; PULSE 95; RESP 16; TEMP 36.8; O2SAT 100; BMI 25.0
[2024-05-25 12:52] VITALS: BP 124/86; PULSE 83; O2SAT 99
[2024-05-25] MEDS: ondansetron 2 mg/ML SDV 2 mL 8 MG IVP (12:53)
--- NOTE | 2024-05-25 12:55 | ED_ITS ---
HPI - Nausea/Vomiting/Diarrhea General: Chief complaint: Nausea/Vomiting/Diarrhea Stated complaint: stomach pain Time Seen by Provider: 05/25/24 12:47 History of Present Illness: 54-year-old female with a history of rec urrent vomiting who presents emergency room with nausea and upset stomach. She said she locked up her meds and she cannot get the box open. No focal abdominal pain. This is a recurrent problem. Related Data Previous Rx's Medication Instructions Recorded ondansetron 4 mg disintegrating 4 mg PO Q6H PRN nausea and 03/31/24 tablet vomiting #14 tabs atorvastatin 10 mg tablet 10 mg PO DAILY #30 tabs 04/17/24 lisdexamfetamine 60 mg capsule 60 mg PO DAILY #30 caps 04/17/24 (Vyvanse) lisinopril 2.5 mg tablet 2.5 mg PO DAILY 30 days #30 tabs 04/17/24 trazodone 50 mg tablet 50 mg PO BEDTIME #30 tabs 04/17/24 ondansetron 8 mg disintegrating 8 mg PO Q6H #14 tabs 05/25/24 tablet Allergies Allergy/AdvReac Type Severity Reaction Status Date / Time No Known Allergies Allergy Verified 04/17/24 13:52 Review of Systems Narrative: Constitutional symptoms: Negative except as documented in HPI. Skin symptoms: Negative except as documented in HPI. Eye symptoms: Negative except as documented in HPI. ENMT symptoms: Negative except as documented in HPI. Respiratory symptoms: Negative except as documented in HPI. Cardiovascular symptoms: Negative except as documented in HPI. Gastrointestinal symptoms: Negative except as documented in HPI. Genitourinary symptoms: Negative except as documented in HPI. Musculoskeletal symptoms: Negative except as documented in HPI. Neurologic symptoms: Negative except as documented in HPI. Psychiatric symptoms: Negative except as documented in HPI. Endocrine symptoms: Negative except as documented in HPI. [facility] ED PFSH: Medical History History of ADHD Physical Exam Narrative: EXAM NARRATIVE: General: Alert, no acute distress. Skin: warm and dry Head: Normocephalic Neck: Trachea midline Eye: Extraocular movements are intact. Ears, nose, mouth and throat: Oral mucosa moist Respiratory: Respirations are non-labored Musculoskeletal: Normal ROM Neurological: Alert and oriented, No focal neurological deficit observed. Psychiatric: Cooperative, appropriate mood & affect. Course Vital Signs: Vital signs: Vital Signs Temperature 98.2 F 05/25/24 12:40 Pulse Rate 83 05/25/24 12:52 Respiratory Rate 16 05/25/24 12:40 Blood Pressure 124/86 05/25/24 12:52 Pulse Oximetry 99 05/25/24 12:52 Oxygen Delivery Me thod Room Air 05/25/24 12:52 MDM - Nausea/Vomiting/Diarrhea Medical Decision Making Assessment and plan: Nausea and vomiting, recurrent ?Zofran in the emergency room - Discharged home - Discussed plan with patient. Answered any questions. - Evaluation and treatment of this problem were appropriate in the emergency setting. No radiology studies performed this visit Discharge Plan Discharge Patient Disposition: Home Clinical Impression: Gastroenteritis Condition: Stable Prescriptions: New ondansetron 8 mg tablet,disintegrating 8 mg PO Q6H Qty: 14 0RF Rx Instructions: Take 1/2-1 tab every 6 hours as needed for nausea and vomiting No Action ondansetron 4 mg tablet,disintegrating 4 mg PO Q6H PRN (Reason: nausea and vomiting) Qty: 14 0RF trazodone 50 mg tablet 50 mg PO BEDTIME Qty: 30 0RF atorvastatin 10 mg tablet 10 mg PO DAILY Qty: 30 0RF lisinopril 2.5 mg Tablet 2.5 mg PO DAILY 30 Days Qty: 30 1RF lisdexamfetamine [Vyvanse] 60 mg capsule 60 mg PO DAILY Qty: 30 0RF Discharge Orders: Discharge ED (Routine); Ordered 05/25/24 Ordered By: Tash Clemens Discharge Diet: Advance as tolerated Discharge Activity: Increase activity as tolerated Patient Instructions: Gastroenteritis (ED), Opioid Safety, Pain Management Activity Restrictions/Additional Instructions: Thank you for choosing [facility] for your healthcare needs today. Please realize this is an emergency room and that we are providing you with a medical screening exam and this may not be complete and all inclusive of all the testing and or work up that you may need to determine your ailment or severity of your illness. You have been screened and evaluated and felt safe for discharge. Health conditions do change or evolve sometimes and as such it is important that you follow up with your Primary Doctor to be re checked, 3-5 days is a general good time frame for follow up. You are always welcome to return to the ED for re assessment if your symptoms are worsening or you have new concerns Coding Level of Care Code ED Assistant Boys Track Coach for Pavel Cormier
[2024-05-25 13:02] VITALS: BP 124/86; PULSE 80; O2SAT 100
== END 2024-05-25 13:04 | disposition home or self-care (01) ==
PROVIDERS: Emergency Provider Emergency Medicine
DX: K52.9 Noninfective gastroenteritis and colitis, unspecified (principal)
CPT/HCPCS: 96374; 99284; J2405

== ENCOUNTER 2024-06-02 03:38 | Emergency (ER) | payer MEDICAID, SELFPAY ==
[2024-06-02 03:40] VITALS: BP 130/68; PULSE 94; RESP 24; TEMP 36.6; O2SAT 94; BMI 24.9
--- NOTE | 2024-06-02 03:41 | ECG_ITS ---
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 Measurements Intervals [place] Rate: 87 P: 83 NM: 157 QRS: 77 QRSD: 86 T: 55 QT: 355 QTc: 429 Interpretive Statements SINUS RHYTHM POSSIBLE RIGHT ATRIAL ENLARGEMENT [0.25mV P-WAVE] POSSIBLE LEFT ATRIAL ENLARGEMENT [-0.1mV P-WAVE IN V1/V2] MODERATE ST DEPRESSION [0.05+ mV ST DEPRESSION] Compared to ECG 03/31/2024 22:32:31 ST (T wave) deviation now present Sinus tachycardia no longer present Electronically Signed On 06-02-2024 08:57:33 PATCHER HELPER by Artem Cazares M.D. [email or web address]
--- NOTE | 2024-06-02 03:41 | XRR_ITS ---
PROCEDURE INFORMATION: Exam: XR Chest Exam date and time: 06/02/2024 4:09 AM Age: 54 years old Clinical indication: Shortness of breath TECHNIQUE: Imaging protocol: Radiologic exam of the chest. Views: 1 view. COMPARISON: No relevant prior studies available. FINDINGS: Lungs: Unremarkable. No consolidation. Pleural spaces: Unremarkable. No pleural effusion. No pneumothorax. Heart/Mediastinum: Unremarkable. No cardiomegaly. Bones/joints: Unremarkable. XR/XR chest 1V portable [id number] IMPRESSION: No acute findings.
--- NOTE | 2024-06-02 03:46 | ED_ITS ---
HPI - Anxiety 2 General: Chief Complaint: Anxiety Stated Complaint: Anxiety Time Seen by Provider: 06/02/24 03:40 History of Present Illness: 54-year-old female with a history of tob acco dependence, hyperlipidemia and hypertension who presents the emergency room with shortness of breath and anxiety. She says she woke up in the [place] short of breath. EMS reports she was very tachypneic on their presentation. They did give her a breathing treatment which may have helped some on the way here. She says she quit smoking 2 days ago because she has not been feeling well. She has tightness in her chest. No nausea or vomiting. No abdominal pain. Some mild wheeze on exam on presentation Related Data Previous Rx's Medication Instructions Recorded ondansetron 4 mg disintegrating 4 mg PO Q6H PRN nausea and 03/31/24 tablet vomiting #14 tabs atorvastatin 10 mg tablet 10 mg PO DAILY #30 tabs 04/17/24 lisdexamfetamine 60 mg capsule 60 mg PO DAILY #30 caps 04/17/24 (Vyvanse) lisinopril 2.5 mg tablet 2.5 mg PO DAILY 30 days #30 tabs 04/17/24 trazodone 50 mg tablet 50 mg PO BEDTIME #30 tabs 04/17/24 ondansetron 8 mg disintegrating 8 mg PO Q6H #14 tabs 05/25/24 tablet albuterol sulfate 90 mcg/actuation 2 inh inhalation Q4H PRN shortness 06/02/24 aerosol inhaler of breath or wheezing #6.7 grams dexamethasone 6 mg tablet 6 mg PO DAILY 5 days #5 tabs 06/02/24 oseltamivir 75 mg capsule (Tamiflu) 75 mg PO BID 5 days #10 caps 06/02/24 Allergies Allergy/AdvReac Type Severity Reaction Status Date / Time No Known Allergies Allergy Verified 06/02/24 03:41 Review of Systems 2 Narrative: Constitutional symptoms: Negative except as documented in HPI. Skin symptoms: Negative except as documented in HPI. Eye symptoms: Negative except as documented in HPI. ENMT symptoms: Negative except as documented in HPI. Respiratory symptoms: Negative except as documented in HPI. Cardiovascular symptoms: Negative except as documented in HPI. Gastrointestinal symptoms: Negative except as documented in HPI. Genitourinary symptoms: Negative except as documented in HPI. Musculoskeletal symptoms: Negative except as documented in HPI. Neurologic symptoms: Negative except as documented in HPI. Psychiatric symptoms: Negative except as documented in HPI. Endocrine symptoms: Negative except as documented in HPI. PFSH ED 2 PFSH: Medical History History of ADHD Physical Exam 2 Narrative: EXAM NARRATIVE: General: Alert, no acute distress. Skin: Warm, dry. Head: Normocephalic, atraumatic. Neck: Supple, trachea midline. Eye: Extraocular movements are intact. Ears, nose, mouth and throat: Oral mucosa moist. Cardiovascular: Regular rate and rhythm, Normal peripheral perfusion. Respiratory: some expiratory wheeze, mild increased wob, breath sounds are equal, Symmetrical chest wall expansion. Gastrointestinal: Soft, Nontender, Non distended, Normal bowel sounds. Musculoskeletal: Normal ROM, no deformity. Neurological: Alert and oriented to person, place, time, and situation, No focal neurological deficit observed. Psychiatric: Cooperative, appropriate mood & affect. Course 2 Vital Signs: Vital signs: Vital Signs Temperature 97.8 F 06/02/24 03:40 Pulse Rate 90 06/02/24 04:30 Respiratory Rate 18 06/02/24 04:30 Blood Pressure 130/68 06/02/24 04:15 Pulse Oximetry 96 06/02/24 04:30 Oxygen Delivery Me thod Nasal Cannula 06/02/24 04:30 Oxygen Flow Rate 2 06/02/24 04:30 MDM - Anxiety Medical Decision Making Differential diagnosis for patient with shortness of breath includes but is not limited to and based on the above HPI, review of systems and physical exam: Pneumonia. Bronchitis. Asthma or COPD with acute exacerbation. Acute coronary syndrome / NV. Pulmonary embolism. Anxiety. Congestive heart failure. Viral infections including influenza and Covid-19. Atrial fibrillation. Anxiety. Pleural effusion. Pneumothorax. Orders placed to evaluate differential diagnosis based on the above differential, HPI and physical exam Lab Review: Laboratory results were reviewed and interpreted by myself the emergency room physician. Lab work is fairly unremarkable. No leukocytosis. No anemia. No renal failure. ABG was within normal limits. No oxygen requirements. Patient does have influenza however. Chest x-ray: No acute process. No infiltrate. No pneumothorax. This was reviewed and interpreted by myself the emergency room physician. I also reviewed the radiology report. I reviewed the patient's medical record. Reexamination: Wheezing has improved some with breathing treatments. No oxygen requirement. No altered mental status. No focal motor deficits. Assessment and plan: Influenza Wheezing Tobacco dependence ?Breathing treatments, inhaler with spacer training. IV Decadron. - Discharged home - Discussed plan with patient. Answered any questions. - Evaluation and treatment of this problem were appropriate in the emergency setting. Lab Data 06/02/24 04:04 06/02/24 04:04 Radiology Impressions Chest X-Ray 06/02/24 03:41 IMPRESSION: No acute findings. Laboratory Results WBC 4.59 10^3/uL (3.29-11.43) 06/02/24 04:04 RBC 5.32 10^6/uL (3.85-5.65) 06/02/24 04:04 Hgb 15.70 g/dL (11.27-16.99) 06/02/24 04:04 Hct 48.1 % (36-47) H 06/02/24 04:04 MCV 90.4 fl (85-98) 06/02/24 04:04 MCH 29.5 pg (27-33) 06/02/24 04:04 MCHC 32.6 g/dL (30-55) 06/02/24 04:04 RDW 14.0 % (12.1-15.1) 06/02/24 04:04 Plt Count 193 10^3/cmm (157-399) 06/02/24 04:04 MPV 10.0 fL (7.4-10.4) 06/02/24 04:04 Neut % (Auto) 42.2 % 06/02/24 04:04 Lymph % (Auto) 38.6 % 06/02/24 04:04 [place] % (Auto) 18.1 % 06/02/24 04:04 Eos % (Auto) 0.4 % 06/02/24 04:04 Baso % (Auto) 0.7 % 06/02/24 04:04 Neut # (Auto) 1.94 10^3/uL (1.8-7.7) 06/02/24 04:04 Lymph # (Auto) 1.8 10^3/uL (0.8-4.8) 06/02/24 04:04 [place] # (Auto) 0.8 10^3/uL (0.2-0.9) 06/02/24 04:04 Eos # (Auto) 0.0 10^3/uL (0.0-0.8) 06/02/24 04:04 Baso # (Auto) 0.0 10^3/uL (0.0-0.1) 06/02/24 04:04 Nucleated RBC % (auto) 0 % 06/02/24 04:04 Nucleated RBCs # 0.0 /100WBC 06/02/24 04:04 Specimen Type Arterial 06/02/24 04:29 Sample Site Radial, right 06/02/24 04:29 ABG pH 7.39 (7.35-7.45) 06/02/24 04:29 ABG pCO2 40.5 mmHg (35-45) 06/02/24 04:29 ABG pO2 66.3 mmHg (80.0-100.0) L 06/02/24 04:29 ABG HCO3 24.6 mmol/L (22-26) 06/02/24 04:29 ABG O2 Saturation 92.5 06/02/24 04:29 ABG Base Excess -0.3 mmol/L (-2.0-2.0) 06/02/24 04:29 Alejandro Test Pos 06/02/24 04:29 A-a O2 Gradient 4.5 mmHg (5-10) L 06/02/24 04:29 Hematocrit 48.3 % (37-47) H 06/02/24 04:29 Hgb O2 Saturation 90.7 % (95-100) L 06/02/24 04:29 Carboxyhemoglobin 0.9 %THgb (0.4-20.1) 06/02/24 04:29 Methemoglobin 1.0 % (0.4-1.5) 06/02/24 04:29 Total Hemoglobin 15.8 g/dL (12-16) 06/02/24 04:29 Sodium 140.0 mmol/L (131-143) 06/02/24 04:29 Potassium 3.5 mmol/L (3.5-5.0) 06/02/24 04:29 Glucose 108.0 mg/dL (70-115) 06/02/24 04:29 Ionized Calcium 1.2 mmol/L (1.1-1.4) 06/02/24 04:29 O2 Delivery Device Nc 06/02/24 04:29 O2 Liters/Min 2.0 % 06/02/24 04:29 Vaccinator ID [email or web address] 06/02/24 04:29 Sodium 137 mmol/L (136-145) 06/02/24 04:04 Potassium 4.0 mmol/L (3.5-5.1) 06/02/24 04:04 Chloride 99 mmol/L (98-107) 06/02/24 04:04 Carbon Dioxide 24 mmol/L (22-29) 06/02/24 04:04 Anion Gap 18.0 (5-19) 06/02/24 04:04 BUN 19 mg/dL (6-20) 06/02/24 04:04 Creatinine 0.6 mg/dL (0.5-0.9) 06/02/24 04:04 GFR Calculation 104.6 mL/min (90-130) 06/02/24 04:04 Glucose 111 mg/dL (65-115) 06/02/24 04:04 Calculated Osmolality 287 mOsm/kg (285-295) 06/02/24 04:04 Lactic Acid 1.2 mmol/L (0.5-2.2) 06/02/24 04:04 Calcium 9.3 mg/dL (8.5-10.5) 06/02/24 04:04 Total Bilirubin 0.3 mg/dL (0.15-1.2) 06/02/24 04:04 AST 42 U/L (0-32) H 06/02/24 04:04 ALT 45 U/L (0-33) H 06/02/24 04:04 Alkaline Phosphatase 79 U/L (35-105) 06/02/24 04:04 Troponin T Baseline < 6 ng/L (0-10) 06/02/24 04:04 C-Reactive Protein 10.7 mg/L (0.0-4.9) H 06/02/24 04:04 NT-Pro-B Natriuret Pep < 36 pg/mL (0-125) 06/02/24 04:04 Total Protein 7.0 g/dL (6.6-8.7) 06/02/24 04:04 Albumin 4.3 g/dL (3.5-5.2) 06/02/24 04:04 Globulin 2.7 g/dL (1.3-4.6) 06/02/24 04:04 Coronavirus (PCR) Negative (Negative) 06/02/24 03:58 Influenza A (PCR) Positive (Negative) 06/02/24 03:58 Influenza Type B (PCR) Negative (Negative) 06/02/24 03:58 RSV (PCR) Negative (Negative) 06/02/24 03:58 All radiology interpretation(s) finalized by discharge Discharge Plan Discharge Patient Disposition: Home Clinical Impression: Influenza, Wheezing, Tobacco dependence Condition: Stable Prescriptions: New dexamethasone 6 mg tablet 6 mg PO DAILY 5 Days Qty: 5 0RF oseltamivir [Tamiflu] 75 mg capsule 75 mg PO BID 5 Days Qty: 10 0RF albuterol sulfate 90 mcg/actuation HFA aerosol inhaler 2 inh inhalation Q4H PRN (Reason: shortness of breath or wheezing) Qty: 6.7 0RF Rx Instructions: Please provide patient with a spacer No Action ondansetron 8 mg tablet,disintegrating 8 mg PO Q6H Qty: 14 0RF Rx Instructions: Take 1/2-1 tab every 6 hours as needed for nausea and vomiting ondansetron 4 mg tablet,disintegrating 4 mg PO Q6H PRN (Reason: nausea and vomiting) Qty: 14 0RF trazodone 50 mg tablet 50 mg PO BEDTIME Qty: 30 0RF atorvastatin 10 mg tablet 10 mg PO DAILY Qty: 30 0RF lisinopril 2.5 mg Tablet 2.5 mg PO DAILY 30 Days Qty: 30 1RF lisdexamfetamine [Vyvanse] 60 mg capsule 60 mg PO DAILY Qty: 30 0RF Discharge Orders: Discharge ED (Routine); Ordered 06/02/24 Ordered By: Tash Clemens Discharge Diet: Usual diet Discharge Activity: Increase activity as tolerated Patient Instructions: Influenza (ED), How to Use a Metered-Dose Inhaler and a Spacer (DC), Opioid Safety, Pain Management Activity Restrictions/Additional Instructions: Thank you for choosing [facility] for your healthcare needs today. Please realize this is an emergency room and that we are providing you with a medical screening exam and this may not be complete and all inclusive of all the testing and or work up that you may need to determine your ailment or severity of your illness. You have been screened and evaluated and felt safe for discharge. Health conditions do change or evolve sometimes and as such it is important that you follow up with your Primary Doctor to be re checked, 3-5 days is a general good time frame for follow up. You are always welcome to return to the ED for re assessment if your symptoms are worsening or you have new concerns Coding Level of Care Code ED Landscape Management Technician for Pavel Cormier
[2024-06-02 04:09] LABS: Basophils % 0.7 %; Eosinophils % 0.4 %; Hematocrit 48.1 % (36-47); Lymphocytes # 1.8 10^3/uL (0.8-4.8); Lymphocytes % 38.6 %; Mean Corpuscular HGB Conc 32.6 g/dL (30-55); Mean Corpuscular Hemoglobin 29.5 pg (27-33); Mean Corpuscular Volume 90.4 fl (85-98); Monocytes # 0.8 10^3/uL (0.2-0.9); Monocytes % 18.1 %; Neutrophils # 1.94 10^3/uL (1.8-7.7); Neutrophils % 42.2 %; Nucleated Red Blood Cells % 0 %; Platelet Count 193 10^3/cmm (157-399); Red Blood Count 5.32 10^6/uL (3.85-5.65); White Blood Count 4.59 10^3/uL (3.29-11.43)
[2024-06-02 04:15] VITALS: BP 130/68; PULSE 93; RESP 19; O2SAT 94
[2024-06-02 04:26] LABS: Troponin(5th) Baseline < 6 ng/L (0-10)
[2024-06-02 04:29] LABS: Lactic Sepsis W/Reflex 1.2 mmol/L (0.5-2.2)
[2024-06-02 04:30] VITALS: PULSE 85; PULSE 90; RESP 18; O2SAT 95; O2SAT 96
[2024-06-02] MEDS: albuterol 8 gm MDI 2 PUFF INHALATION (04:30)
[2024-06-02 04:43] LABS: ABG PCO2 40.5 mmHg (35-45); ABG PH Result 7.39 (7.35-7.45); Alveolar-Arterial Oxygen Gradi 4.5 mmHg (5-10); Arterial Blood Gas Hematocrit 48.3 % (37-47); Base Excess ABG -0.3 mmol/L (-2.0-2.0); Blood Gas Allen Test Pos; Blood Gas Sample Site Radial, right; Blood Gas Sample Type Arterial; Carboxyhemoglobin 0.9 %THgb (0.4-20.1); HCO3 ABG 24.6 mmol/L (22-26); HGB O2 Sat 90.7 % (95-100); Ionized Calcium Level - ABG 1.2 mmol/L (1.1-1.4); Oxygen Device NC; Oxygen Saturation ABG 92.5; PO2 ABG 66.3 mmHg (80.0-100.0); Potassium Level - ABG 3.5 mmol/L (3.5-5.0); Total Hemoglobin 15.8 g/dL (12-16)
[2024-06-02 04:45] LABS: Alanine Aminotransferase 45 U/L (0-33); Albumin Level 4.3 g/dL (3.5-5.2); Alkaline Phosphatase 79 U/L (35-105); Aspartate Amino Transferase 42 U/L (0-32); Blood Urea Nitrogen 19 mg/dL (6-20); C Reactive Protein 10.7 mg/L (0.0-4.9); Calcium 9.3 mg/dL (8.5-10.5); Carbon Dioxide 24 mmol/L (22-29); Chloride 99 mmol/L (98-107); Creatinine Clr Calc Pharmacy 101.2163; Globulin 2.7 g/dL (1.3-4.6); Glomerular Filtration Rate 104.6 mL/min (90-130); Glucose 111 mg/dL (65-115); NT Pro B Type Natriuretic Pept < 36 pg/mL (0-125); Osmolality Calculated 287 mOsm/kg (285-295); Sodium 137 mmol/L (136-145); Total Bilirubin 0.3 mg/dL (0.15-1.2)
[2024-06-02 04:45] LABS: Covid PCR NEGATIVE (Negative); Influenza A POSITIVE (Negative); Influenza B NEGATIVE (Negative); Respiratory Syncytial Virus Ce NEGATIVE (Negative)
[2024-06-02] MEDS: dexamethasone 10 mg/mL INJ IVP (05:19)
[2024-06-02 05:39] VITALS: BP 130/68; PULSE 73; RESP 18; O2SAT 94
[2024-06-02 06:00] VITALS: PULSE 76; RESP 19; O2SAT 93
[2024-06-02 06:12] VITALS: BP 130/68; PULSE 78; O2SAT 93
== END 2024-06-02 06:15 | disposition home or self-care (01) ==
PROVIDERS: Emergency Provider Emergency Medicine
DX: J10.1 Influenza due to other identified influenza virus with other respiratory manifestations (principal); R06.2 Wheezing; Z11.52 Encounter for screening for COVID-19; F17.200 Nicotine dependence, unspecified, uncomplicated
CPT/HCPCS: 36415; 36600; 71045; 80051; 80053; 82330; 82805; 83605; 83880; 84484; 85025; 86140; 87637; 93005; 94640; 96374; 99285; J1100; J3535

== ENCOUNTER 2024-06-11 14:07 | Emergency (ER) | payer MEDICAID, SELFPAY ==
[2024-06-11 14:10] VITALS: BP 128/86; PULSE 105; RESP 18; TEMP 36.7; O2SAT 96
--- NOTE | 2024-06-11 14:16 | ECG_ITS ---
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
--- NOTE | 2024-06-11 14:17 | XRR_ITS ---
PROCEDURE INFORMATION: Exam: XR Chest Exam date and time: 06/11/2024 3:05 PM Age: 54 years old Clinical indication: Cough and fever; SOB; Cough; Fever TECHNIQUE: Imaging protocol: Radiologic exam of the chest. Views: 1 view. COMPARISON: CR (CHEST, ) 06/02/2024 4:09 AM FINDINGS: Lungs: Ill-defined opacity at the medial right lung base. Pleural spaces: Unremarkable. No pleural effusion. No pneumothorax. Heart/Mediastinum: Unremarkable. No cardiomegaly. Bones/joints: Unremarkable. XR/XR chest 1V portable [id number] IMPRESSION: Ill-defined opacity at the medial right lung base, possible infiltrate/pneumonia.
--- NOTE | 2024-06-11 14:26 | ED_ITS ---
HPI - SOB/Dyspnea 2 General: Chief Complaint: Shortness of Breath/Dyspnea Stated Complaint: sob Time Seen by Provider: 06/11/24 14:17 Source: patient Mode of arrival: ambulatory Limitations: no limitations History of Present Illness: HPI Narrative: 54-year-old female who states she was di agnosed with influenza 1 week ago states she had been having some shortness of breath she denies any cough denies any fever denies any chest pain. She is also been feeling extremely anxious she states she has been out of her Vyvanse over the last week. She denies any pain. Associated symptoms: Deny abdominal pain, chest pain, fever(s), nausea or vomiting Related Data Previous Rx's Medication Instructions Recorded ondansetron 4 mg disintegrating 4 mg PO Q6H PRN nausea and 03/31/24 tablet vomiting #14 tabs atorvastatin 10 mg tablet 10 mg PO DAILY #30 tabs 04/17/24 lisinopril 2.5 mg tablet 2.5 mg PO DAILY 30 days #30 tabs 04/17/24 trazodone 50 mg tablet 50 mg PO BEDTIME #30 tabs 04/17/24 ondansetron 8 mg disintegrating 8 mg PO Q6H #14 tabs 05/25/24 tablet albuterol sulfate 90 mcg/actuation 2 inh inhalation Q4H PRN shortness 06/02/24 aerosol inhaler of breath or wheezing #6.7 grams doxycycline hyclate 100 mg tablet 100 mg PO BID 7 days #14 tabs 06/11/24 Allergies Allergy/AdvReac Type Severity Reaction Status Date / Time No Known Allergies Allergy Verified 06/11/24 14:15 Review of Systems 2 Const: Denies: fever(s), chills, body aches or change in appetite Eyes: Denies: blurry vision or eye discomfort ENMT: Denies: throat pain or dental pain Card: Denies: chest pain Resp: Reports: dyspnea GI: Denies: abdominal pain, nausea, vomiting or diarrhea Musc: Denies: neck pain or back pain Skin/Breast: Denies: rash Neuro: Denies: headache(s) Psych: Reports: anxiety PFSH ED 2 PFSH: Medical History History of ADHD Physical Exam 2 Const: COMMON NORMALS: no acute distress, patient oriented x3 and healthy appearing GENERAL APPEARANCE: anxious HENMT: COMMON NORMALS: normocephalic and atraumatic HEAD & SCALP: n ormocephalic and atraumatic Eye: COMMON NORMALS: Equal, round and reactive pupils present and EOMs intact bilaterally PUPIL: Yes Equal, round and reactive pupils present Neck/C-Spine: COMMON NORMALS: full ROM and supple Chest: COMMONS NORMALS: normal inspection of the chest and normal palpation of entire chest wall Resp: COMMON NORMALS: normal respiratory effort, No retractions, No use of accessory muscles and clear to auscultation bilaterally AUSCULTATION: clear to auscultation bilaterally Cardio: COMMON NORMALS: regular rate, regular rhythm and No murmurs present (Cardio) RATE: regular rate RHYTHM: regular rhythm GI: COMMON NORMALS: Normal to inspection, nondistended, normoactive bowel sounds present, Soft to palpation, non-tender and no masses PALPATION: Yes Soft to palpation Extremity: COMMON NORMALS: normal to inspection and full ROM Neuro: COMMON NORMALS: patient oriented x3, moves all extremities and no focal motor deficits Psych: COMMON NORMALS: mental status grossly normal, Normal thought process present and cooperative THOUGHT PROCESS: Normal thought process present Skin: COMMON NORMALS: no rashes or lesions noted and no wounds GENERAL SKIN EXAM: no rashes or lesions noted Course 2 Vital Signs: Vital signs: Vital Signs Temperature 98.0 F 06/11/24 14:10 Pulse Rate 105 H 06/11/24 14:10 Respiratory Rate 18 06/11/24 14:10 Blood Pressure 128/86 06/11/24 14:10 Pulse Oximetry 96 06/11/24 14:10 Oxygen Delivery Me thod Room Air 06/11/24 14:10 MDM - SOB/Dyspnea Medical Decision Making Patient presents. Dyspnea x-ray shows a possible pneumonia she is in no distress here we will start her on antibiotics she is to follow-up with PCP and return if worsening she understands agrees to plan Medical Records I reviewed the patient's medical records. Lab Data I reviewed the patient's lab results. 06/11/24 14:33 06/11/24 14:33 Labs/Radiology: Radiology Impressions Chest X-Ray 06/11/24 14:17 IMPRESSION: Ill-defined opacity at the medial right lung base, possible infiltrate/pneumonia. Laboratory Results WBC 15.40 10^3/uL (3.29-11.43) H 06/11/24 14:33 RBC 4.74 10^6/uL (3.85-5.65) 06/11/24 14:33 Hgb 14.10 g/dL (11.27-16.99) 06/11/24 14:33 Hct 42.0 % (36-47) 06/11/24 14:33 MCV 88.6 fl (85-98) 06/11/24 14:33 MCH 29.7 pg (27-33) 06/11/24 14:33 MCHC 33.6 g/dL (30-55) 06/11/24 14:33 RDW 13.4 % (12.1-15.1) 06/11/24 14:33 Plt Count 326 10^3/cmm (157-399) 06/11/24 14:33 MPV 9.3 fL (7.4-10.4) 06/11/24 14:33 Neut % (Auto) 74.4 % 06/11/24 14:33 Lymph % (Auto) 15.7 % 06/11/24 14:33 [place] % (Auto) 7.7 % 06/11/24 14:33 Eos % (Auto) 1.6 % 06/11/24 14:33 Baso % (Auto) 0.3 % 06/11/24 14:33 Neut # (Auto) 11.46 10^3/uL (1.8-7.7) H 06/11/24 14:33 Lymph # (Auto) 2.4 10^3/uL (0.8-4.8) 06/11/24 14:33 [place] # (Auto) 1.2 10^3/uL (0.2-0.9) H 06/11/24 14:33 Eos # (Auto) 0.3 10^3/uL (0.0-0.8) 06/11/24 14:33 Baso # (Auto) 0.0 10^3/uL (0.0-0.1) 06/11/24 14:33 Nucleated RBC % (auto) 0 % 06/11/24 14:33 Nucleated RBCs # 0.0 /100WBC 06/11/24 14:33 Sodium 138 mmol/L (136-145) 06/11/24 14:33 Potassium 4.1 mmol/L (3.5-5.1) 06/11/24 14:33 Chloride 102 mmol/L (98-107) 06/11/24 14:33 Carbon Dioxide 22 mmol/L (22-29) 06/11/24 14:33 Anion Gap 18.1 (5-19) 06/11/24 14:33 BUN 12 mg/dL (6-20) 06/11/24 14:33 Creatinine 0.6 mg/dL (0.5-0.9) 06/11/24 14:33 GFR Calculation 104.6 mL/min (90-130) 06/11/24 14:33 Glucose 132 mg/dL (65-115) H 06/11/24 14:33 Calculated Osmolality 288 mOsm/kg (285-295) 06/11/24 14:33 Calcium 9.1 mg/dL (8.5-10.5) 06/11/24 14:33 Total Bilirubin 0.2 mg/dL (0.15-1.2) 06/11/24 14:33 AST 16 U/L (0-32) 06/11/24 14:33 ALT 18 U/L (0-33) 06/11/24 14:33 Alkaline Phosphatase 90 U/L (35-105) 06/11/24 14:33 NT-Pro-B Natriuret Pep 51 pg/mL (0-125) 06/11/24 14:33 Total Protein 7.1 g/dL (6.6-8.7) 06/11/24 14:33 Albumin 3.5 g/dL (3.5-5.2) 06/11/24 14:33 Globulin 3.6 g/dL (1.3-4.6) 06/11/24 14:33 No radiology studies performed this visit EKG Data EKG 1: I personally reviewed and interpreted this EKG as follows: EKG Interpretation Date: 06/11/24 EKG interpretation time: 14:16 Interpretation: sinus tach hr [address] elevation qrs 78 qtc 387 Discharge Plan Discharge Patient Disposition: Home Clinical Impression: Community acquired pneumonia Condition: Stable Prescriptions: New doxycycline hyclate 100 mg tablet 100 mg PO BID 7 Days Qty: 14 0RF Discontinued lisdexamfetamine [Vyvanse] 60 mg capsule 60 mg PO DAILY Qty: 30 0RF No Action ondansetron 8 mg tablet,disintegrating 8 mg PO Q6H Qty: 14 0RF Rx Instructions: Take 1/2-1 tab every 6 hours as needed for nausea and vomiting albuterol sulfate 90 mcg/actuation HFA aerosol inhaler 2 inh inhalation Q4H PRN (Reason: shortness of breath or wheezing) Qty: 6.7 0RF Rx Instructions: Please provide patient with a spacer ondansetron 4 mg tablet,disintegrating 4 mg PO Q6H PRN (Reason: nausea and vomiting) Qty: 14 0RF trazodone 50 mg tablet 50 mg PO BEDTIME Qty: 30 0RF atorvastatin 10 mg tablet 10 mg PO DAILY Qty: 30 0RF lisinopril 2.5 mg Tablet 2.5 mg PO DAILY 30 Days Qty: 30 1RF Discharge Orders: Discharge ED (Routine); Ordered 06/11/24 Ordered By: Concepcion Keller Discharge Diet: Advance as tolerated Discharge Activity: Resume usual activity Patient Instructions: Community Acquired Pneumonia (ED) Coding Level of Care Code ED Bioprocess Development Engineer for Pavel Cormier
[2024-06-11] MEDS: LORazepam 2 mg/mL INJ 1 mL 1 MG IVP (14:38)
[2024-06-11 14:41] LABS: Basophils % 0.3 %; Eosinophils # 0.3 10^3/uL (0.0-0.8); Eosinophils % 1.6 %; Lymphocytes # 2.4 10^3/uL (0.8-4.8); Lymphocytes % 15.7 %; Mean Corpuscular HGB Conc 33.6 g/dL (30-55); Mean Corpuscular Hemoglobin 29.7 pg (27-33); Mean Corpuscular Volume 88.6 fl (85-98); Mean Platelet Volume 9.3 fL (7.4-10.4); Monocytes # 1.2 10^3/uL (0.2-0.9); Monocytes % 7.7 %; Neutrophils # 11.46 10^3/uL (1.8-7.7); Neutrophils % 74.4 %; Nucleated Red Blood Cells % 0 %; Platelet Count 326 10^3/cmm (157-399); Red Blood Count 4.74 10^6/uL (3.85-5.65); Red Cell Distribution Width 13.4 % (12.1-15.1)
[2024-06-11 15:07] LABS: Alanine Aminotransferase 18 U/L (0-33); Albumin Level 3.5 g/dL (3.5-5.2); Alkaline Phosphatase 90 U/L (35-105); Anion Gap 18.1 (5-19); Aspartate Amino Transferase 16 U/L (0-32); Blood Urea Nitrogen 12 mg/dL (6-20); Calcium 9.1 mg/dL (8.5-10.5); Carbon Dioxide 22 mmol/L (22-29); Chloride 102 mmol/L (98-107); Creatinine Clr Calc Pharmacy 101.2163; Globulin 3.6 g/dL (1.3-4.6); Glomerular Filtration Rate 104.6 mL/min (90-130); Glucose 132 mg/dL (65-115); NT Pro B Type Natriuretic Pept 51 pg/mL (0-125); Osmolality Calculated 288 mOsm/kg (285-295); Potassium 4.1 mmol/L (3.5-5.1); Sodium 138 mmol/L (136-145); Total Bilirubin 0.2 mg/dL (0.15-1.2); Total Protein 7.1 g/dL (6.6-8.7)
[2024-06-11 15:58] VITALS: BP 117/73; PULSE 101; O2SAT 99
[2024-06-11] MEDS: doxycycline 100 mg Tablet PO (15:59)
== END 2024-06-11 15:59 | disposition home or self-care (01) ==
PROVIDERS: Emergency Provider Emergency Medicine
DX: J18.9 Pneumonia, unspecified organism (principal)
CPT/HCPCS: 71045; 80053; 83880; 85025; 93005; 96374; 99285; J2060